=== PATIENT | female | born 1995 | race Caucasian/White ===

== ENCOUNTER 2018-04-07 19:46 | Emergency (ER) | payer OTHER ==
--- NOTE | 2018-04-07 20:17 | ERPHSYRPT ---
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 Triage Nursing Assessment: pt a&o x3; skin p, w, & d; ambulated to room per self ; family at bedside. Physician History: 23-year-old white female 1 para to who states she is 13 weeks last menstrual period January 08 estimated date of confinement December 18, 2018 Who has had an ultrasound done on April 01, 2018 which showed an intrauterine 11 weeks 3 days Arrives with complaint of a noticing some pink tinging from her vagina with wiping after using the restroom just prior to arrival. Past medical history includes asthma, recent mononucleosis Past surgical history negative Timing/Duration: today Severity: mild Modifying Factors: Improves With: nothing Associated Symptoms: other (vaginal blood with wiping after using restroom this afternoon.), No nausea, No vomiting, No abdominal pain, No shortness of breath, No heartburn, No diaphoresis, No cough, No chills, No chest pain, No fever, No headaches, No loss of appetite, No malaise, No rash, No syncope, No seizure, No weakness Allergies/Adverse Reactions: sulfamethoxazole [From Bactrim] Allergy (Mild, Verified 04/07/18 20:02) Headache trimethoprim [From Bactrim] Allergy (Mild, Verified 04/07/18 20:02) Headache codeine Allergy (Verified 04/07/18 20:02) Penicillins Allergy (Verified 04/07/18 20:02) Home Medications: Albuterol 2.5 mg/3 ml Neb [Proventil 2.5 mg/3 ml Neb] DAILY 04/28/14 [ History] Albuterol Sulfate [Proventil Hfa] 04/28/14 [History] Hx Tetanus, Diphtheria Vaccination/Date Given: Yes Hx Influenza Vaccination/Date Given: No Hx Pneumococcal Vaccination/Date Given: No Immunizations Up to Date: No - Review of Systems Constitutional: No Fever, No Chills Eyes: No Symptoms Ears, Nose, & Throat: No Symptoms Respiratory: No Cough, No Dyspnea Cardiac: No Chest Pain, No Edema, No Syncope Abdominal/Gastrointestinal: Abdominal Pain, No Nausea, No Vomiting, No Diarrhea , No Constipation, No Hematemesis, No Hematochezia, No Melena, No Dysphagia Genitourinary Symptoms: (13 weeks), Vaginal Bleeding (blood with wiping after using restroom) Musculoskeletal: No Back Pain, No Neck Pain Skin: No Rash Neurological: No Dizziness, No Focal Weakness, No Sensory Changes Psychological: No Symptoms Endocrine: No Symptoms All Other Systems: Reviewed and Negative - Past Medical History Pertinent Past Medical History: Yes Respiratory History: Asthma Other Medical History: mono 1 month ago - Past Surgical History Past Surgical History: No - Social History Smoking Status: Never smoker Exposure to second hand smoke: No Drug Use: none Patient Lives Alone: No - Female History Hx Last Menstrual Period: 01/08/2018 Hx Now: Yes - Nursing Vital Signs Nursing Vital Signs: Initial Vital Signs Temperature 98.5 F 04/07/18 19:54 Pulse Rate 107 H 04/07/18 19:54 Respiratory Rate 16 04/07/18 19:54 Blood Pressure 132/68 04/07/18 19:54 O2 Sat by Pulse Oximetry 100 04/07/18 19:54 Pain Scale Pain Intensity 0 - Physical Exam General Appearance: no apparent distress, alert Eye Exam: PERRL/EOMI, eyes nml inspection Ears, Nose, Throat Exam: normal ENT inspection, TMs normal, pharynx normal, moist mucous membranes Neck Exam: normal inspection, non-tender, supple, full range of motion Respiratory Exam: normal breath sounds, lungs clear, No respiratory distress Cardiovascular Exam: regular rate/rhythm, normal heart sounds, normal peripheral pulses Gastrointestinal/Abdomen Exam: soft, normal bowel sounds, No tenderness, No mass Pelvic Exam: vaginal bleeding, other (pelvic exam: normal external female genitalia, small amount of blood in the vagina, cervix closed, no adnexal or cervical tenderness) Back Exam: normal inspection, normal range of motion, No CVA tenderness, No vertebral tenderness Extremity Exam: normal inspection, normal range of motion, pelvis stable Neurologic Exam: alert, oriented x 3, cooperative, 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, normal mood/affect, nml cerebellar function, nml station & gait, sensation nml, No motor deficits Skin Exam: normal color, warm, dry, No rash SpO2 Interpretation: normal (100%) SpO2: 100 Oxygen Delivery: Room Air - Course Nursing assessment & vital signs reviewed: Yes Ordered Tests: Active Orders 24 hr Category Date Time Status Heart Tones-ED STAT Care 04/07/18 20:12 Active CBC W DIFF Stat Lab 04/07/18 20:15 Completed CMP Stat Lab 04/07/18 20:15 Completed CULTURE,URINE Stat Lab 04/07/18 20:20 Received HCG, Quantitative (Inhouse) Stat Lab 04/07/18 20:15 Completed UA W/ MICROSCOPIC Stat Lab 04/07/18 20:20 Completed Wet Prep Stat Lab 04/07/18 21:47 Completed Lab/Rad Data: Laboratory Result Diagrams 04/07/18 20:15 04/07/18 20:15 Laboratory Results 04/07/18 04/07/18 04/07/18 Range/Units 21:47 21:47 20:20 WBC (4.0-10.5) K/mm3 RBC (4.1-5.4) M/mm3 Hgb (12.0-16.0) gm/dl Hct (35-47) % MCV (78-100) fl MCH (26-32) pg MCHC (32-36) g/dl RDW (11.5-14.0) % Plt Count (150-450) K/mm3 MPV (6-9.5) fl Gran % (36.0-66.0) % Eos # (Auto) (0-0.5) Absolute Lymphs (auto) (1.0-4.6) Absolute Monos (auto) (0.0-1.3) Lymphocytes % (24.0-44.0) % Monocytes % (0.0-12.0) % Eosinophils % (0.00-5.0) % Basophils % (0.0-0.4) % Absolute Granulocytes (1.4-6.9) Basophils # (0-0.4) Sodium (137-145) mmol/L Potassium (3.5-5.1) mmol/L Chloride (98-107) mmol/L Carbon Dioxide (22-30) mmol/L Anion Gap (5-15) MEQ/L BUN (7-17) mg/dL Creatinine (0.52-1.04) mg/dL Estimated GFR ML/MIN Glucose (74-106) mg/dL Calcium (8.4-10.2) mg/dL Total Bilirubin (0.2-1.3) mg/dL AST (14-36) U/L ALT (0-35) U/L Alkaline Phosphatase (38-126) U/L Serum Total Protein (6.3-8.2) g/dL Albumin (3.5-5.0) g/dL Beta HCG, Quant mIU/ml Ur Collection Type VOID Urine Color YELLOW (YELLOW) Urine Appearance CLEAR (CLEAR) Urine pH 6.0 (5-6) Ur Specific [place] 1.010 (1.005-1.025) Urine Protein NEGATIVE (Negative) Urine Ketones NEGATIVE (NEGATIVE) Urine Blood 250 (0-5) River/ul Urine Nitrite NEGATIVE (NEGATIVE) Urine Bilirubin NEGATIVE (NEGATIVE) Urine Urobilinogen NORMAL (0-1) mg/dL Ur Leukocyte Esterase NEGATIVE (NEGATIVE) Urine Microscopic RBC 0-2 (0-2) /HPF Urine Microscopic WBC 2-5 (0-5) /HPF Ur Epithelial Cells MODERATE (FEW) /HPF Urine Bacteria FEW (NEGATIVE) /HPF Urine Culture Reflexed NO (NO) Urine Glucose NEGATIVE (NEGATIVE) mg/dL WBC (Wet Prep) Few RBC (Wet Prep) Rare Epi Cells (Wet Prep) Few Bacteria (Wet Prep) Few Clue Cells (Wet Prep) None Seen Trichomonas (Wet Prep) None Seen Budding Yeast (Wet Prp) None Seen Specimen Received 04/07/182019 ABO Group O Rh Factor POSITIVE Antibody Screen NEGATIVE (NEGATIVE) 04/07/18 04/07/18 Range/Units 20:15 20:15 WBC 13.2 H (4.0-10.5) K/mm3 RBC 4.29 (4.1-5.4) M/mm3 Hgb 13.2 (12.0-16.0) gm/dl Hct 37.7 (35-47) % MCV 87.9 (78-100) fl MCH 30.8 (26-32) pg MCHC 35.0 (32-36) g/dl RDW 13.6 (11.5-14.0) % Plt Count 245 (150-450) K/mm3 MPV 10.4 H (6-9.5) fl Gran % 72.0 H (36.0-66.0) % Eos # (Auto) 0.25 (0-0.5) Absolute Lymphs (auto) 2.15 (1.0-4.6) Absolute Monos (auto) 1.27 (0.0-1.3) Lymphocytes % 16.3 L (24.0-44.0) % Monocytes % 9.6 (0.0-12.0) % Eosinophils % 1.9 (0.00-5.0) % Basophils % 0.2 (0.0-0.4) % Absolute Granulocytes 9.49 H (1.4-6.9) Basophils # 0.02 (0-0.4) Sodium 138 (137-145) mmol/L Potassium 3.7 (3.5-5.1) mmol/L Chloride 103 (98-107) mmol/L Carbon Dioxide 24 (22-30) mmol/L Anion Gap 15.1 H (5-15) MEQ/L BUN 8 (7-17) mg/dL Creatinine 0.57 (0.52-1.04) mg/dL Estimated GFR > 60.0 ML/MIN Glucose 85 (74-106) mg/dL Calcium 9.7 (8.4-10.2) mg/dL Total Bilirubin 0.20 (0.2-1.3) mg/dL AST 20 (14-36) U/L ALT 20 (0-35) U/L Alkaline Phosphatase 82 (38-126) U/L Serum Total Protein 7.7 (6.3-8.2) g/dL Albumin 4.5 (3.5-5.0) g/dL Beta HCG, Quant 03225 mIU/ml Ur Collection Type Urine Color (YELLOW) Urine Appearance (CLEAR) Urine pH (5-6) Ur Specific [place] (1.005-1.025) Urine Protein (Negative) Urine Ketones (NEGATIVE) Urine Blood (0-5) [place]/ul Urine Nitrite (NEGATIVE) Urine Bilirubin (NEGATIVE) Urine Urobilinogen (0-1) mg/dL Ur Leukocyte Esterase (NEGATIVE) Urine Microscopic RBC (0-2) /HPF Urine Microscopic WBC (0-5) /HPF Ur Epithelial Cells (FEW) /HPF Urine Bacteria (NEGATIVE) /HPF Urine Culture Reflexed (NO) Urine Glucose (NEGATIVE) mg/dL WBC (Wet Prep) RBC (Wet Prep) Epi Cells (Wet Prep) Bacteria (Wet Prep) Clue Cells (Wet Prep) Trichomonas (Wet Prep) Budding Yeast (Wet Prp) Specimen Received ABO Group Rh Factor Antibody Screen (NEGATIVE) - Progress Progress: improved Progress Note: 04/07/18 22:13 23-year-old white female 1 para 0 who is 13 weeks estimated gestational age arrives with complaint of blood with wiping from her vagina since this evening. She has no abdominal pain no nausea no vomiting. Patient is stable with her hemoglobin and hematocrit. Patient on physical examination does have some blood in her vagina there is no pooling there is no active bleeding cervix is closed there is no adnexal or uterine tenderness. Patient had a pelvic ultrasound one week ago which showed an intrauterine 11 weeks 4 days at that time. Patient's urine is essentially negative CBC slight elevation in white count normal for hemoglobin and hematocrit are normal. heart tones were 180 as per OB nurse. Type and screen has been obtained Wet prep is essentially normal. GC Chlamydia are pending. I've discussed the patient's case with Dr. Rosa will plan to have patient return home rest nothing in her vagina follow-up with Dr. Rosa in clinic. We will not do RhoGAM at this time patient with very minimal bleeding. I've discussed this with patient and her family she has good with this and understands plan. 04/07/18 22:16 04/07/18 22:54 Patient's blood type is O+ - Departure Time of Disposition: 22:54 Departure Disposition: Home Clinical Impression: Vaginal bleeding Qualifiers: Weeks of gestation: 13 weeks Qualified Code(s): Z3A.13 - 13 weeks gestation of Condition: Fair Critical Care Time: No Referrals: DEBBIE ROSA MD [Primary Care Provider] - Additional Instructions: Return home rest. Plenty of fluids. Nothing in your vagina. Follow-up with Dr. Rosa. Return for acute distress or for severe symptoms.
[2018-04-07 20:22] LABS: BASOPHIL % 0.2 % (0.0-0.4); Basophil (Absolute #) 0.02 (0-0.4); Eosinophil % 1.9 % (0.00-5.0); Eosinophil (Absolute #) 0.25 (0-0.5); Granulocyte Absolute (ANC) 9.49 (1.4-6.9); Hematocrit 37.7 % (35-47); Hemoglobin 13.2 gm/dl (12.0-16.0); Lymphocyte (Absolute #) 2.15 (1.0-4.6); Lymphocytes % 16.3 % (24.0-44.0); Mean Cell Volume 87.9 fl (78-100); Mean Corpuscular Hemoglobin 30.8 pg (26-32); Mean Platelet Volume 10.4 fl (6-9.5); Monocyte (Absolute #) 1.27 (0.0-1.3); Monocytes % 9.6 % (0.0-12.0); Platelet Count 245 K/mm3 (150-450); Red Blood Count 4.29 M/mm3 (4.1-5.4); Red Cell Distribution Width 13.6 % (11.5-14.0); White Blood Count 13.2 K/mm3 (4.0-10.5)
[2018-04-07 20:32] LABS: Appearance CLEAR (CLEAR); Bacteria FEW /HPF (NEGATIVE); Bilirubin NEGATIVE (NEGATIVE); Blood 250 Ery/ul (0-5); Epithelial Cells MODERATE /HPF (FEW); Glucose NEGATIVE (NEGATIVE); Ketones NEGATIVE (NEGATIVE); Leukocyte Esterase NEGATIVE (NEGATIVE); Nitrite NEGATIVE (NEGATIVE); Protein,Urine Dip NEGATIVE (Negative); RBC 0-2 /HPF (0-2); Urobilinogen NORMAL mg/dL (0-1)
[2018-04-07 20:56] LABS: ALBUMIN 4.5 g/dL (3.5-5.0); ALKALINE PHOSPHATASE 82 U/L (38-126); ANION GAP 15.1 MEQ/L (5-15); BLOOD UREA NITROGEN 8 mg/dL (7-17); CHLORIDE 103 mmol/L (98-107); Calcium 9.7 mg/dL (8.4-10.2); Carbon Dioxide 24 mmol/L (22-30); Creatinine 1 0.57 mg/dL (0.52-1.04); Glucose 85 mg/dL (74-106); Potassium 3.7 mmol/L (3.5-5.1); SGOT/AST 20 U/L (14-36); SGPT/ALT 20 U/L (0-35); SODIUM 138 mmol/L (137-145); Total Protein 7.7 g/dL (6.3-8.2)
[2018-04-07 21:21] LABS: HCG, Quantitative (Inhouse) 99838 mIU/ml
[2018-04-07 21:58] LABS: Bacteria Few; Clue Cells None Seen; Red Blood Cells Rare; Trichomonas None Seen; White Blood Cells Few
[2018-04-07 22:35] LABS: ABO TYPING O
[2018-04-07 22:36] LABS: Antibody Screen NEGATIVE (NEGATIVE); RH TYPING POSITIVE
[2018-04-07 23:07] VITALS: BP 113/70; PULSE 87; O2SAT 99
== END 2018-04-07 23:07 | disposition home or self-care (01) ==
LOC: ED 19:46
DX: O46.91 Antepartum hemorrhage, unspecified, first trimester (principal); Z3A.13 13 weeks gestation of pregnancy
CPT/HCPCS: 36415; 80053; 81000; 84702; 85025; 86850; 86900; 86901; 87086; 87210; 87490; 87590; 99284

== ENCOUNTER 2018-09-01 13:34 | Observation (INO) | payer OTHER, MEDICAID ==
[2018-09-01 13:58] VITALS: BP 115/58
[2018-09-01 14:01] VITALS: PULSE 110
[2018-09-01 14:01] LABS: Appearance CLOUDY (CLEAR); Bilirubin NEGATIVE (NEGATIVE); Blood NEGATIVE Ery/ul (0-5); Epithelial Cells MANY /HPF (FEW); Glucose NEGATIVE (NEGATIVE); Ketones NEGATIVE (NEGATIVE); Leukocyte Esterase LARGE (NEGATIVE); Mucus SLIGHT /HPF (NEGATIVE); Nitrite NEGATIVE (NEGATIVE); Protein,Urine Dip NEGATIVE (Negative); RBC 0-2 /HPF (0-2); Specific Gravity 1.017 (1.005-1.025); Urobilinogen 2 mg/dL (0-1); WBC 26-50 /HPF (0-5)
[2018-09-01 14:23] LABS: Amphetamine,Urine NEGATIVE (NEGATIVE); Barbiturate,Urine NEGATIVE (NEGATIVE); Benzodiazepine,Urine NEGATIVE (NEGATIVE); Cocaine,Urine NEGATIVE (NEGATIVE); Methadone,Urine NEGATIVE (NEGATIVE); Opiate,Urine NEGATIVE (NEGATIVE); PCP,Urine NEGATIVE (NEGATIVE); THC,Urine NEGATIVE (NEGATIVE)
--- NOTE | 2018-09-01 15:34 | XRAY ---
Indication: Irregular heart rhythm. 2-dimensional OB ultrasound performed. Comparison: May 20, 2018. Again there is a single viable intrauterine in cephalic presentation. heart rate 140 bpm with slight arrhythmia. Also tiny 3 mm pericardial effusion. anatomy previously documented. Visualized stomach, kidneys, and bladder unremarkable. Posterior placenta without abruption/previa. BPD measures 8.65 cm corresponding to 34 weeks 6 days. HC measures 31.04 cm corresponding to 34 weeks 5 days. AC measures 31.13 cm corresponding to 35 weeks 0 day. FL measures 6.62 cm corresponding to 34 weeks 1 day. VAL is 14.8 cm. Impression: 1. Again single viable intrauterine with mean gestational age 34 weeks 5 days. Normal progression of with fetus now measuring 10 days larger with respect to first exam of April 01, 2018. 2. arrhythmia. Incidental tiny pericardial effusion that may be associated. Recommend further cardiology evaluation .
== END 2018-09-01 15:45 | disposition home or self-care (01) ==
LOC: OB 13:34
PROVIDERS: ADMIT Family Medicine; ATTEND Family Medicine
DX: Z34.03 Encounter for supervision of normal first pregnancy, third trimester (principal)
CPT/HCPCS: 76805; 80307; 81001; 87086; G0378

== ENCOUNTER 2018-09-30 22:06 | Observation (INO) | payer OTHER ==
[2018-09-30 22:49] LABS: Appearance CLOUDY (CLEAR); Bilirubin NEGATIVE (NEGATIVE); Blood NEGATIVE Ery/ul (0-5); Epithelial Cells FEW /HPF (FEW); Glucose NEGATIVE (NEGATIVE); Ketones NEGATIVE (NEGATIVE); Leukocyte Esterase LARGE (NEGATIVE); Mucus SLIGHT /HPF (NEGATIVE); Nitrite NEGATIVE (NEGATIVE); Protein,Urine Dip NEGATIVE (Negative); RBC 0-2 /HPF (0-2); Specific Gravity 1.019 (1.005-1.025); Urobilinogen 2 mg/dL (0-1)
[2018-09-30 23:44] LABS: Amphetamine,Urine NEGATIVE (NEGATIVE); Barbiturate,Urine NEGATIVE (NEGATIVE); Benzodiazepine,Urine NEGATIVE (NEGATIVE); Cocaine,Urine NEGATIVE (NEGATIVE); Methadone,Urine NEGATIVE (NEGATIVE); Opiate,Urine NEGATIVE (NEGATIVE); PCP,Urine NEGATIVE (NEGATIVE); THC,Urine NEGATIVE (NEGATIVE)
[2018-10-01] MEDS ORDERED: TYLENOL EXTRA STRENGTH 500 MG PO PRN (01:33)
[2018-10-01] MEDS ORDERED: Zofran 4 MG/2 ML VIAL IV PRN (01:33)
[2018-10-01] MEDS ORDERED: XYLOCAINE 1% HCL 20 ML MDV IJ PRN (01:33)
[2018-10-01] MEDS ORDERED: PITOCIN 30 UNITS/ LR 500 ML 500 ML IV SCH (02:00)
[2018-10-01] MEDS ORDERED: Lactated Ringers 1,000 ML IV SCH (02:00)
[2018-10-01 03:09] LABS: BASOPHIL % 0.2 % (0.0-0.4); Basophil (Absolute #) 0.03 (0-0.4); Eosinophil % 1.3 % (0.00-5.0); Eosinophil (Absolute #) 0.18 (0-0.5); Granulocyte Absolute (ANC) 10.89 (1.4-6.9); Hematocrit 38.2 % (35-47); Hemoglobin 12.7 gm/dl (12.0-16.0); Lymphocyte (Absolute #) 1.53 (1.0-4.6); Mean Cell Volume 93.2 fl (78-100); Mean Corpuscular Hgb Concent. 33.2 g/dl (32-36); Mean Platelet Volume 11.5 fl (6-9.5); Monocyte (Absolute #) 1.32 (0.0-1.3); Monocytes % 9.5 % (0.0-12.0); Platelet Count 219 K/mm3 (150-450); Red Cell Distribution Width 14.1 % (11.5-14.0)
--- NOTE | 2018-10-01 08:46 | PCM.SSS ---
History of Present Illness - Chief Complaint Chief Complaint: OB check History of Present Illness: is a 23 year old female at 38 weeks arrived c/o contractions, she has some minimal cervical change from 2-3cm but contractions have spaced out and she feels comfortable now, her heart rate monitor is reassuring. she has had no fluid leakage. - Review of Systems Constitutional: No Fever, No Chills Respiratory: No Cough, No Short Of Breath Cardiac: No Chest Pain, No Edema, No Syncope Abdominal/Gastrointestinal: No Abdominal Pain, No Nausea, No Vomiting, No Diarrhea Genitourinary Symptoms: No Dysuria Medications & Allergies Home Medications: Home Medication List Vits W-Ca,Fe,FA(<1Mg) [] 1 tab PO DAILY 09/01/18 [History Confirmed 09/30/18] Albuterol Sulfate [Albuterol Sulfate Hfa] 8.5 gm IH Q4H PRN PRN 09/30/18 [ History Confirmed 09/30/18] Fluticasone/Vilanterol [Breo Ellipta 100-25 Mcg INH] 1 mcg IH DAILY 09/30/18 [ History Confirmed 09/30/18] Allergies/Adverse Reactions: Allergies Allergy/AdvReac Type Severity Reaction Status Date / Time sulfamethoxazole Allergy Mild Headache Verified 09/30/18 22:47 [From Bactrim] trimethoprim [From Bactrim] Allergy Mild Headache Verified 09/30/18 22:47 codeine Allergy Verified 09/30/18 22:47 Penicillins Allergy Verified 09/30/18 22:47 - Past Medical History Past Medical History: Yes Neurological History: Seizures ENT History: No Pertinent History Cardiac History: No Pertinent History Respiratory History: Asthma Endocrine Medical History: No Pertinent History Musculoskelatal History: No Pertinent History GI Medical History: No Pertinent History History: No Pertinent History Pyscho-Social History: No Pertinent History Reproductive Disorders: No Pertinent History Comment: mono 1 month ago, febrile seizures 7 years old - Female History Expected Date of Delivery: 10/15/18 - Past Surgical History Past Surgical History: No Neuro Surgical History: No Pertinent History Cardiac History: No Pertinent History Respiratory Surgery: No Pertinent History GI Surgical History: No Pertinent History Genitourinary Surgical Hx: No Pertinent History Musculskeletal Surgical Hx: No Pertinent History Female Surgical History: No Pertinent History - Social History Smoking Status: Never smoker Exposure to second hand smoke: No Alcohol: None Drug Use: none - Physical Exam Vital Signs: Vital Signs - 24 hr Temp Pulse Resp BP BP 10/01/18 05:00 98.5 F 102 H 20 131/66 10/01/18 03:00 98.6 F 96 H 20 124/57 10/01/18 02:00 94 H 18 120/70 10/01/18 00:30 95 H 124/60 10/01/18 00:15 106 H 141/69 09/30/18 23:30 95 H 123/64 09/30/18 23:00 98.6 F 105 H 20 126/60 09/30/18 22:06 98.6 F 90 20 127/62 General Appearance: no apparent distress, alert, obese Neurologic Exam: alert, oriented x 3 Respiratory Exam: normal breath sounds, lungs clear, No respiratory distress Cardiovascular Exam: regular rate/rhythm, normal heart sounds, normal peripheral pulses Gastrointestinal/Abdomen Exam: soft, normal bowel sounds, other (gravid), No tenderness, No mass Extremity Exam: pedal edema Results - Labs Lab/Micro Results: Lab Results-Last 24 Hours 09/30/18 09/30/18 10/01/18 Range/Units 22:14 23:26 03:00 WBC 14.0 H (4.0-10.5) K/mm3 RBC 4.10 (4.1-5.4) M/mm3 Hgb 12.7 (12.0-16.0) gm/dl Hct 38.2 (35-47) % MCV 93.2 (78-100) fl MCH 31.0 (26-32) pg MCHC 33.2 (32-36) g/dl RDW 14.1 H (11.5-14.0) % Plt Count 219 (150-450) K/mm3 MPV 11.5 H (6-9.5) fl Gran % 78.0 H (36.0-66.0) % Eos # (Auto) 0.18 (0-0.5) Absolute Lymphs (auto) 1.53 (1.0-4.6) Absolute Monos (auto) 1.32 H (0.0-1.3) Lymphocytes % 11.0 L (24.0-44.0) % Monocytes % 9.5 (0.0-12.0) % Eosinophils % 1.3 (0.00-5.0) % Basophils % 0.2 (0.0-0.4) % Absolute Granulocytes 10.89 H (1.4-6.9) Basophils # 0.03 (0-0.4) Urine Color YELLOW (YELLOW) Urine Appearance CLOUDY (CLEAR) Urine pH 7.0 (5-6) Ur Specific [place] 1.019 (1.005-1.025) Urine Protein NEGATIVE (Negative) Urine Ketones NEGATIVE (NEGATIVE) Urine Blood NEGATIVE (0-5) River/ul Urine Nitrite NEGATIVE (NEGATIVE) Urine Bilirubin NEGATIVE (NEGATIVE) Urine Urobilinogen 2 (0-1) mg/dL Ur Leukocyte Esterase LARGE (NEGATIVE) Urine WBC (Auto) 16-25 (0-5) /HPF Urine RBC (Auto) 0-2 (0-2) /HPF U Epithel Cells (Auto) FEW (FEW) /HPF Urine Bacteria (Auto) NONE (NEGATIVE) /HPF Unidentified Crystals 50-99 (NEGATIVE) /HPF Urine Mucus (Auto) SLIGHT (NEGATIVE) /HPF Urine Culture Reflexed NO (NO) Urine Glucose NEGATIVE (NEGATIVE) mg/dL Urine Opiates Level NEGATIVE (NEGATIVE) Ur Methadone NEGATIVE (NEGATIVE) Urine Barbiturates NEGATIVE (NEGATIVE) Ur Phencyclidine (PCP) NEGATIVE (NEGATIVE) Urine Amphetamine NEGATIVE (NEGATIVE) U Benzodiazepine Level NEGATIVE (NEGATIVE) Urine Cocaine NEGATIVE (NEGATIVE) Urine Marijuana (THC) NEGATIVE (NEGATIVE) Assessment/Plan (1) Term Current Visit: Yes Status: Acute Assessment & Plan: labor ruled out at this time. patient is normotensive Code(s): Z34.80 - ENCOUNTER FOR SUPRVSN OF NORMAL , UNSP TRIMESTER (2) Irregular contractions Current Visit: Yes Status: Acute Code(s): O62.2 - OTHER UTERINE INERTIA Hospital Summary - Vitals & Intake/Output Vital Signs: Vital Signs Temperature 98.5 F 10/01/18 05:00 Pulse Rate 102 H 10/01/18 05:00 Respiratory Rate 20 10/01/18 05:00 Blood Pressure 131/66 10/01/18 05:00 O2 Sat by Pulse Oximetry Intake & Output: Intake & Output 09/28/18 09/29/18 09/30/18 10/01/18 11:59 11:59 11:59 11:59 Weight 124.738 kg - Lab Result Diagrams: 10/01/18 03:00 Lab Results-Last 24 Hrs: Lab Results-Last 24 Hours 09/30/18 09/30/18 10/01/18 Range/Units 22:14 23:26 03:00 WBC 14.0 H (4.0-10.5) K/mm3 RBC 4.10 (4.1-5.4) M/mm3 Hgb 12.7 (12.0-16.0) gm/dl Hct 38.2 (35-47) % MCV 93.2 (78-100) fl MCH 31.0 (26-32) pg MCHC 33.2 (32-36) g/dl RDW 14.1 H (11.5-14.0) % Plt Count 219 (150-450) K/mm3 MPV 11.5 H (6-9.5) fl Gran % 78.0 H (36.0-66.0) % Eos # (Auto) 0.18 (0-0.5) Absolute Lymphs (auto) 1.53 (1.0-4.6) Absolute Monos (auto) 1.32 H (0.0-1.3) Lymphocytes % 11.0 L (24.0-44.0) % Monocytes % 9.5 (0.0-12.0) % Eosinophils % 1.3 (0.00-5.0) % Basophils % 0.2 (0.0-0.4) % Absolute Granulocytes 10.89 H (1.4-6.9) Basophils # 0.03 (0-0.4) Urine Color YELLOW (YELLOW) Urine Appearance CLOUDY (CLEAR) Urine pH 7.0 (5-6) Ur Specific [place] 1.019 (1.005-1.025) Urine Protein NEGATIVE (Negative) Urine Ketones NEGATIVE (NEGATIVE) Urine Blood NEGATIVE (0-5) River/ul Urine Nitrite NEGATIVE (NEGATIVE) Urine Bilirubin NEGATIVE (NEGATIVE) Urine Urobilinogen 2 (0-1) mg/dL Ur Leukocyte Esterase LARGE (NEGATIVE) Urine WBC (Auto) 16-25 (0-5) /HPF Urine RBC (Auto) 0-2 (0-2) /HPF U Epithel Cells (Auto) FEW (FEW) /HPF Urine Bacteria (Auto) NONE (NEGATIVE) /HPF Unidentified Crystals 50-99 (NEGATIVE) /HPF Urine Mucus (Auto) SLIGHT (NEGATIVE) /HPF Urine Culture Reflexed NO (NO) Urine Glucose NEGATIVE (NEGATIVE) mg/dL Urine Opiates Level NEGATIVE (NEGATIVE) Ur Methadone NEGATIVE (NEGATIVE) Urine Barbiturates NEGATIVE (NEGATIVE) Ur Phencyclidine (PCP) NEGATIVE (NEGATIVE) Urine Amphetamine NEGATIVE (NEGATIVE) U Benzodiazepine Level NEGATIVE (NEGATIVE) Urine Cocaine NEGATIVE (NEGATIVE) Urine Marijuana (THC) NEGATIVE (NEGATIVE) - Discharge Disposition: Home, Self-Care Condition: Stable Prescriptions: No Action Vits W-Ca,Fe,FA(<1Mg) [] 1 tab PO DAILY Fluticasone/Vilanterol [Breo Ellipta 100-25 Mcg INH] 1 mcg IH DAILY Albuterol Sulfate [Albuterol Sulfate Hfa] 8.5 gm IH Q4H PRN PRN PRN Reason: breathing Follow up with: DEBBIE ROSA MD [Primary Care Provider] - 1 Week
[2018-10-01 09:38] VITALS: BP 131/70; PULSE 107
== END 2018-10-01 09:15 | disposition home or self-care (01) ==
LOC: UNDOADMOB 22:06 → OB 22:06
PROVIDERS: ADMIT Family Medicine; ATTEND Family Medicine
DX: Z34.03 Encounter for supervision of normal first pregnancy, third trimester (principal)
CPT/HCPCS: 36415; 80307; 81001; 85025; G0378; A9270-GY

== ENCOUNTER 2018-10-10 18:12 | Inpatient (IN) | payer OTHER ==
[2018-10-10] MEDS ORDERED: XYLOCAINE 1% HCL 20 ML MDV IJ PRN (19:38)
[2018-10-10] MEDS ORDERED: Lactated Ringers 1,000 ML IV ONE (19:59)
[2018-10-10] MEDS ORDERED: Ephedrine Sulfate 50 MG/ML IV PRN (19:59)
[2018-10-10] MEDS ORDERED: OB EPIDURAL NAROPIN/SUFENTANIL IN NACL EPIDURAL PRN (19:59)
[2018-10-10 20:00] LABS: BASOPHIL % 0.2 % (0.0-0.4); Basophil (Absolute #) 0.02 (0-0.4); Eosinophil % 0.9 % (0.00-5.0); Eosinophil (Absolute #) 0.11 (0-0.5); Granulocyte Absolute (ANC) 9.85 (1.4-6.9); Granulocytes % 77.5 % (36.0-66.0); Hematocrit 38.7 % (35-47); Lymphocyte (Absolute #) 1.37 (1.0-4.6); Lymphocytes % 10.8 % (24.0-44.0); Mean Cell Volume 92.8 fl (78-100); Mean Corpuscular Hemoglobin 31.2 pg (26-32); Mean Corpuscular Hgb Concent. 33.6 g/dl (32-36); Mean Platelet Volume 11.8 fl (6-9.5); Monocyte (Absolute #) 1.35 (0.0-1.3); Monocytes % 10.6 % (0.0-12.0); Platelet Count 212 K/mm3 (150-450); Red Blood Count 4.17 M/mm3 (4.1-5.4); Red Cell Distribution Width 13.7 % (11.5-14.0); White Blood Count 12.7 K/mm3 (4.0-10.5)
[2018-10-10] MEDS ORDERED: PITOCIN 30 UNITS/ LR 500 ML 500 ML IV SCH (20:00)
[2018-10-10] MEDS: Lactated Ringers 1,000 ML IV SCH (20:13)
[2018-10-10 20:19] LABS: Amphetamine,Urine NEGATIVE (NEGATIVE); Barbiturate,Urine NEGATIVE (NEGATIVE); Benzodiazepine,Urine NEGATIVE (NEGATIVE); Cocaine,Urine NEGATIVE (NEGATIVE); Methadone,Urine NEGATIVE (NEGATIVE); Opiate,Urine NEGATIVE (NEGATIVE); PCP,Urine NEGATIVE (NEGATIVE); THC,Urine NEGATIVE (NEGATIVE)
[2018-10-10] MEDS ORDERED: TYLENOL 325 MG PO PRN (22:10)
[2018-10-11] MEDS: Lactated Ringers 1,000 ML IV SCH (02:41)
[2018-10-11] MEDS ORDERED: Zofran 4 MG/2 ML VIAL IV PRN (05:21)
[2018-10-11] MEDS ORDERED: LANSINOH 40 GM TOP PRN (06:20)
[2018-10-11] MEDS ORDERED: Anucort-HC SUPPOSITORY PR PRN (06:20)
[2018-10-11] MEDS ORDERED: NORCO 5/325 MG PO PRN (06:20)
[2018-10-11] MEDS ORDERED: Mylicon 80MG PO PRN (06:20)
[2018-10-11] MEDS ORDERED: TYLENOL EXTRA STRENGTH 500 MG PO PRN (06:20)
[2018-10-11] MEDS ORDERED: CORTISONE 1% CREAM TP PRN (06:20)
[2018-10-11] MEDS ORDERED: Dulcolax 10 MG SUPP PR PRN (06:20)
[2018-10-11] MEDS: TUCKS TP PRN (08:35)
[2018-10-11] MEDS: Dermoplast Spray TP PRN (08:36)
[2018-10-11] MEDS: FERREX 150 PO SCH (08:37)
[2018-10-11] MEDS: Colace 100 MG PO SCH ×2 (08:37→22:21)
[2018-10-11] MEDS ORDERED: Adacel Vial IM ONE (10:00)
[2018-10-11] MEDS: MOTRIN 400 MG PO PRN ×2 (14:50→22:21)
[2018-10-12 05:53] LABS: BASOPHIL % 0.2 % (0.0-0.4); Basophil (Absolute #) 0.02 (0-0.4); Eosinophil % 1.7 % (0.00-5.0); Eosinophil (Absolute #) 0.19 (0-0.5); Granulocyte Absolute (ANC) 8.34 (1.4-6.9); Granulocytes % 72.4 % (36.0-66.0); Hematocrit 28.4 % (35-47); Hemoglobin 9.3 gm/dl (12.0-16.0); Lymphocyte (Absolute #) 1.69 (1.0-4.6); Lymphocytes % 14.7 % (24.0-44.0); Mean Cell Volume 95.9 fl (78-100); Mean Corpuscular Hemoglobin 31.4 pg (26-32); Mean Corpuscular Hgb Concent. 32.7 g/dl (32-36); Mean Platelet Volume 11.5 fl (6-9.5); Monocyte (Absolute #) 1.26 (0.0-1.3); Platelet Count 154 K/mm3 (150-450); Red Blood Count 2.96 M/mm3 (4.1-5.4); Red Cell Distribution Width 13.6 % (11.5-14.0); White Blood Count 11.5 K/mm3 (4.0-10.5)
[2018-10-12] MEDS ORDERED: Ventolin Hfa MDI IH PRN (07:16)
[2018-10-12] MEDS ORDERED: PROVENTIL COMMON CANISTER IH PRN (07:19)
[2018-10-12] MEDS ORDERED: MEDICATION INTERVENTION MC SCH (07:30)
[2018-10-12] MEDS: FERREX 150 PO SCH (09:32)
[2018-10-12] MEDS: Colace 100 MG PO SCH ×2 (09:32→21:18)
[2018-10-12] MEDS: TUCKS TP PRN (09:33)
[2018-10-12] MEDS: Dermoplast Spray TP PRN (09:33)
[2018-10-12] MEDS: MOTRIN 400 MG PO PRN ×2 (09:36→16:39)
[2018-10-12] MEDS ORDERED: VILANTEROL IH SCH (10:00)
[2018-10-12] MEDS ORDERED: FLUTICASONE IH SCH (10:00)
[2018-10-12] MEDS ORDERED: NON-FORMULARY ITEM (Prenatal Vits W-Ca,Fe,Fa(<1mg) [Prenatal] 1 TAB) PO SCH (10:00)
[2018-10-12] MEDS ORDERED: THERAGRAN MULTIVITAMIN PO SCH (10:00)
[2018-10-13 07:54] VITALS: O2SAT 98
[2018-10-13] MEDS: Colace 100 MG PO SCH (08:41)
[2018-10-13] MEDS: FERREX 150 PO SCH (08:41)
--- NOTE | 2018-10-13 09:19 | PCM.DS ---
Discharge Summary Date of Admission: 10/10/18 18:12 Admitting Physician: DEBBIE ROSA Consults: Consults on Case 10/10/18 19:59 Notify Anesthesia Provider PRN Primary Care Provider: DEBBIE ROSA Allergies Allergies sulfamethoxazole [From Bactrim] Allergy (Mild, Verified 10/10/18 18:44) Headache trimethoprim [From Bactrim] Allergy (Mild, Verified 10/10/18 18:44) Headache codeine Allergy (Verified 10/10/18 18:44) Penicillins Allergy (Verified 10/10/18 18:44) Hospital Summary - Hospital Course Hospital Course: patient arrived in spontaneous labor at 39 wks, had uncomplicated vaginal delivery with second degree perineal laceration repair. , mild lochia and pain well controlled with tylenol and ibuprofen. - Vitals & Intake/Output Vital Signs: Vital Signs Temperature 98.4 F 10/13/18 02:00 Pulse Rate 98 H 10/13/18 02:00 Respiratory Rate 18 10/13/18 02:00 Blood Pressure 138/75 10/13/18 02:00 O2 Sat by Pulse Oximetry 98 10/13/18 07:51 Intake & Output: Intake & Output 10/10/18 10/11/18 10/12/18 10/13/18 11:59 11:59 11:59 11:59 Intake Total 800 Output Total 401 Balance -401 800 Weight 126.099 kg - Lab Result Diagrams: 10/12/18 05:18 - Procedures and Test Procedures and Tests throughout Hospitalization: Therapy Orders & Screens 10/13/18 07:00 Respiratory Therapy Assessment DAILY Comment: Diagnosis: Labor Patient - SR[facility] Discharge Exam General Appearance: no apparent distress, alert, obese Neurologic Exam: alert, oriented x 3 Skin Exam: normal color, warm, dry Respiratory Exam: normal breath sounds, lungs clear, No respiratory distress Cardiovascular Exam: regular rate/rhythm, normal heart sounds Gastrointestinal/Abdomen Exam: soft, No tenderness, No mass Extremity Exam: normal inspection, normal range of motion Final Diagnosis/Problem List - Final Discharge Diagnosis/Problem (1) Vaginal delivery Current Visit: Yes Status: Acute Code(s): O80 - ENCOUNTER FOR FULL-TERM UNCOMPLICATED DELIVERY (2) Second degree perineal laceration during delivery Current Visit: Yes Status: Acute Code(s): O70.1 - SECOND DEGREE PERINEAL LACERATION DURING DELIVERY - Discharge Disposition: Home, Self-Care Condition: Stable Prescriptions: Continue Vits W-Ca,Fe,FA(<1Mg) [] 1 tab PO DAILY Fluticasone/Vilanterol [Breo Ellipta 100-25 Mcg INH] 1 mcg IH DAILY Albuterol Sulfate [Albuterol Sulfate Hfa] 8.5 gm IH Q4H PRN PRN PRN Reason: breathing Follow up with: DEBBIE ROSA MD [Primary Care Provider] - 1 Week
[2018-10-13 12:16] VITALS: BP 126/72; PULSE 74
== END 2018-10-13 12:00 | disposition home or self-care (01) | DRG 807 ==
LOC: OBSVTOIN 18:12 → OB 18:12 → ICU 10-12 09:22
PROVIDERS: ADMIT Family Medicine; ATTEND Family Medicine
PROC: 10E0XZZ Delivery of Products of Conception, External Approach (ICD-10-PCS; principal; 2018-10-11)
PROC: 0KQM0ZZ Repair Perineum Muscle, Open Approach (ICD-10-PCS; 2018-10-11)
DX: O70.1 Second degree perineal laceration during delivery (principal); Z37.0 Single live birth; Z3A.39 39 weeks gestation of pregnancy
CPT/HCPCS: 36415; 80307; 83986; 85025; 90715; 94760; G0378; J2405; J2590; J2795; A9270-GY

== ENCOUNTER 2021-05-25 04:50 | Emergency (ER) | payer OTHER ==
[2021-05-25] MEDS ORDERED: Zofran 4 MG/2 ML VIAL IV ONE (05:18)
[2021-05-25] MEDS ORDERED: TORAdol 30 mg Injection IV ONE (05:18)
[2021-05-25] MEDS ORDERED: Sodium Chloride 0.9% 1000 ML 1,000 ML IV STA ×2 (05:18→05:31)
[2021-05-25] MEDS ORDERED: Zofran 4 MG/2 ML VIAL ONE (05:23)
[2021-05-25] MEDS ORDERED: Sodium Chloride 0.9% 1000 ML 1,000 ML ONE (05:23)
[2021-05-25] MEDS ORDERED: TORAdol 30 mg Injection ONE (05:23)
--- NOTE | 2021-05-25 05:51 | ERPHSYRPT ---
- History of Present Illness Time Seen by Provider: 05/25/21 05:15 Historian: patient Exam Limitations: no limitations Patient Subjective Stated Complaint: Its my gallbladder, I know it is, I'm having surgery on 06/10/21 to have it out. Triage Nursing Assessment: pt c/o RUQ pain, states, "It's my gallbladder". Pt scheduled to have gallbladder out on 06/10/[address] Webster. Abd soft, tender to RUQ, bs active x4 quad. LBM 05/24/21. Physician History: This is a 26-year-old white female who has been having intermittent gallbladder issues over the last year. However in the last month its been more frequent. Last night she had eaten a salad and this morning approximately 3 AM began having the right upper quad abdominal pain with radiation into her back. She had nausea but no vomiting. She has no chest pain. She has no diarrhea. Patient has a cholecystectomy scheduled by Dr. Webster on June 10, 2021. Timing/Duration: hour(s) (2), intermittent, worse Quality: sharpness, stabbing Abdominal Pain Onset Location: RUQ Pain Radiation: back (Right) Severity of Pain-Max: moderate Severity of Pain-Current: mild (Mild to moderate) Associated Symptoms: denies symptoms, nausea Previous symptoms: same symptoms as today Allergies/Adverse Reactions: Penicillins Allergy (Mild, Verified 05/25/21 05:06) Rash sulfamethoxazole [From Bactrim] Allergy (Mild, Verified 05/25/21 05:06) Headache trimethoprim [From Bactrim] Allergy (Mild, Verified 05/25/21 05:06) Headache codeine Allergy (Verified 05/25/21 05:06) Home Medications: Albuterol Sulfate [Albuterol Sulfate Hfa] 8.5 gm IH Q4H PRN PRN 09/30/18 [History] Fluticasone/Vilanterol [Breo Ellipta 100-25 Mcg INH] 1 mcg IH DAILY 09/30/18 [History] Norgestimate-Ethinyl Estradiol [Tri-Sprintec] 1 tab PO DAILY 05/25/21 [History] Hx Tetanus, Diphtheria Vaccination/Date Given: Yes Hx Influenza Vaccination/Date Given: No Hx Pneumococcal Vaccination/Date Given: No Immunizations Up to Date: Yes Travel Risk - International Travel Have you traveled outside of the country in past 3 weeks: No - Coronavirus Screening Close contact with a COVID-19 positive Pt in past 14-21 Days: No - Vaccine Status Have you recieved a Covid-19 vaccination: No - Review of Systems Constitutional: No Symptoms Eyes: No Symptoms Ears, Nose, & Throat: No Symptoms Respiratory: No Symptoms Cardiac: No Symptoms Abdominal/Gastrointestinal: Abdominal Pain, Nausea, Appetite Changes, No Vomiting, No Diarrhea Genitourinary Symptoms: No Symptoms Musculoskeletal: No Symptoms Skin: No Symptoms Neurological: No Symptoms Psychological: No Symptoms Endocrine: No Symptoms Hematologic/Lymphatic: No Symptoms, Easy Bruising All Other Systems: Reviewed and Negative - Past Medical History Pertinent Past Medical History: Yes Neurological History: Seizures ENT History: No Pertinent History Cardiac History: No Pertinent History Respiratory History: Asthma Endocrine Medical History: No Pertinent History Musculoskeletal History: No Pertinent History GI Medical History: Gallbladder Disease History: No Pertinent History Psycho-Social History: No Pertinent History Female Reproductive Disorders: No Pertinent History Other Medical History: mono, febrile seizures 7 years old - Past Surgical History Past Surgical History: No Neuro Surgical History: No Pertinent History Cardiac: No Pertinent History Respiratory: No Pertinent History Gastrointestinal: No Pertinent History Genitourinary: No Pertinent History Musculoskeletal: No Pertinent History Female Surgical History: No Pertinent History - Social History Smoking Status: Never smoker Exposure to second hand smoke: No Drug Use: none Patient Lives Alone: Yes - Female History Hx Last Menstrual Period: 04/24/21 Hx Now: No - Nursing Vital Signs Nursing Vital Signs: Initial Vital Signs Temperature 96.6 F 05/25/21 04:58 Pulse Rate 87 05/25/21 04:58 Respiratory Rate 18 05/25/21 04:58 Blood Pressure 127/70 05/25/21 04:58 O2 Sat by Pulse Oximetry 98 05/25/21 04:58 Pain Scale Pain Intensity 10 - Physical Exam General Appearance: no apparent distress, alert Eye Exam: PERRL/EOMI Ears, Nose, Throat Exam: normal ENT inspection, moist mucous membranes Neck Exam: normal inspection, non-tender, supple, full range of motion Respiratory Exam: normal breath sounds, lungs clear, airway intact, No chest tenderness, No respiratory distress Cardiovascular Exam: regular rate/rhythm, normal heart sounds, normal peripheral pulses Gastrointestinal/Abdomen Exam: soft, normal bowel sounds, No tenderness Pelvic Exam: not done Rectal Exam: not done Back Exam: normal inspection, normal range of motion, No CVA tenderness, No vertebral tenderness Extremity Exam: normal inspection, normal range of motion, pelvis stable Neurologic Exam: alert, oriented x 3, cooperative, director vaccine II-XII nml as tested, normal mood/affect, nml cerebellar function, nml station & gait, sensation nml Skin Exam: normal color, warm, dry Lymphatic Exam: No adenopathy SpO2 Interpretation: normal SpO2: 98 O2 Delivery: Room Air - Course Nursing assessment & vital signs reviewed: Yes Ordered Tests: Active Orders 24 hr Category Date Time Status IV Insertion STAT Care 05/25/21 05:19 Active AMYLASE Stat Lab 05/25/21 05:10 Completed CBC W DIFF Stat Lab 05/25/21 05:10 Completed CMP Stat Lab 05/25/21 05:10 Completed LIPASE Stat Lab 05/25/21 05:10 Completed UA W/RFX UR CULTURE Stat Lab 05/25/21 05:18 Completed Medication Summary Discontinued Medications Generic Name Dose Route Start Last Admin Trade Name Ehq PRN Reason Stop Dose Admin Ciprofloxacin 500 mg 05/25/21 06:21 Ciprofloxacin 500 Mg Tablet PO 05/25/21 06:22 STAT ONE Hydromorphone HCl 0.5 mg 05/25/21 06:18 Hydromorphone 1 Mg/1ml Inj 1 Mg/Ml Syringe IV 05/25/21 06:19 STAT ONE Sodium Chloride 1,000 mls @ 999 mls/hr 05/25/21 05:18 05/25/21 05:25 Sodium Chloride 0.9% 1000 Ml IV 05/25/21 06:18 999 mls/hr .Q1H1M STA Administration Sodium Chloride Confirm 05/25/21 05:23 Sodium Chloride 0.9% 1000 Ml Administered 05/25/21 05:24 Dose 1,000 mls @ ud .ROUTE .STK-MED ONE Sodium Chloride 1,000 mls @ 250 mls/hr 05/25/21 05:31 05/25/21 05:45 Sodium Chloride 0.9% 1000 Ml IV 05/25/21 09:30 Not Given .Q4H STA Ketorolac Tromethamine 30 mg 05/25/21 05:18 05/25/21 05:27 Ketorolac Tromethamine 30 Mg/Ml Inj IV 05/25/21 05:19 30 mg STAT ONE Administration Ketorolac Tromethamine Confirm 05/25/21 05:23 Ketorolac Tromethamine 30 Mg/Ml Inj Administered 05/25/21 05:24 Dose 30 mg .ROUTE .STK-MED ONE Ondansetron HCl 4 mg 05/25/21 05:18 05/25/21 05:28 Ondansetron Hcl 4 Mg/2 Ml Vial IV 05/25/21 05:19 4 mg STAT ONE Administration Ondansetron HCl Confirm 05/25/21 05:23 Ondansetron Hcl 4 Mg/2 Ml Vial Administered 05/25/21 05:24 Dose 4 mg .ROUTE .STK-MED ONE Lab/Rad Data: Laboratory Result Diagrams 05/25/21 05:10 05/25/21 05:10 Laboratory Results 05/25/21 05/25/21 05/25/21 Range/Units 05:18 05:10 05:10 WBC 7.1 (4.0-10.5) K/mm3 RBC 4.47 (4.1-5.4) M/mm3 Hgb 12.8 (12.0-16.0) gm/dl Hct 40.0 (35-47) % MCV 89.5 (78-100) fl MCH 28.6 (26-32) pg MCHC 32.0 (32-36) g/dl RDW 13.8 (11.5-14.0) % Plt Count 215 (150-450) K/mm3 MPV 11.2 H (7.5-11.0) fl Gran % 50.7 (36.0-66.0) % Eos # (Auto) 0.40 (0-0.5) Absolute Lymphs (auto) 2.16 (1.0-4.6) Absolute Monos (auto) 0.91 (0.0-1.3) Lymphocytes % 30.5 (24.0-44.0) % Monocytes % 12.9 H (0.0-12.0) % Eosinophils % 5.6 H (0.00-5.0) % Basophils % 0.3 (0.0-0.4) % Absolute Granulocytes 3.59 (1.4-6.9) Basophils # 0.02 (0-0.4) Sodium 140 (137-145) mmol/L Potassium 4.1 (3.5-5.1) mmol/L Chloride 105 (98-107) mmol/L Carbon Dioxide 25 (22-30) mmol/L Anion Gap 14.6 (5-15) MEQ/L BUN 11 (7-17) mg/dL Creatinine 0.66 (0.52-1.04) mg/dL Estimated GFR > 60.0 ML/MIN Glucose 89 (74-106) mg/dL Calcium 9.5 (8.4-10.2) mg/dL Total Bilirubin 0.50 (0.2-1.3) mg/dL AST 19 (14-36) U/L ALT 16 (0-35) U/L Alkaline Phosphatase 58 (38-126) U/L Serum Total Protein 7.1 (6.3-8.2) g/dL Albumin 4.1 (3.5-5.0) g/dL Amylase 63 (30-110) U/L Lipase 90 (23-300) U/L Urine Color YELLOW (YELLOW) Urine Appearance SLIGHTLY CLOUDY (CLEAR) Urine pH 5.0 (5-6) Ur Specific [place] 1.016 (1.005-1.025) Urine Protein NEGATIVE (Negative) Urine Ketones NEGATIVE (NEGATIVE) Urine Blood NEGATIVE (0-5) River/ul Urine Nitrite NEGATIVE (NEGATIVE) Urine Bilirubin NEGATIVE (NEGATIVE) Urine Urobilinogen NEGATIVE (0-1) mg/dL Ur Leukocyte Esterase LARGE (NEGATIVE) Urine WBC (Auto) 6-10 (0-5) /HPF Urine RBC (Auto) 0-2 (0-2) /HPF U Epithel Cells (Auto) FEW (FEW) /HPF Urine Bacteria (Auto) NONE (NEGATIVE) /HPF Urine Mucus (Auto) SLIGHT (NEGATIVE) /HPF Urine Culture Reflexed NO (NO) Urine Glucose NEGATIVE (NEGATIVE) mg/dL - Progress Progress: improved, re-examined Counseled pt/family regarding: lab results, diagnosis, need for follow-up, rad results - Departure Departure Disposition: Home Clinical Impression: Right upper quadrant abdominal pain Condition: Stable Critical Care Time: No Referrals: PAL CALDERON NP [Primary Care Provider] - Additional Instructions: Avoid fatty greasy spicy foods. Take your medication as prescribed. Return to emergency department if your symptoms worsen. Prescriptions: Ondansetron ODT 4 MG [Zofran Odt 4 mg] 4 mg PO Q6H PRN PRN #10 tablet PRN Reason: Vomiting Hydrocodone/APAP 5/325 [[place] 5/325 mg] 1 each PO Q8H PRN PRN #6 tablet MDD 3 PRN Reason: Pain Ciprofloxacin [Cipro 500 MG] 500 mg PO BID #14 tablet
[2021-05-25 05:55] LABS: Absolute Neutrophil Ct (ANC) 3.59 (1.4-6.9); BASOPHIL % 0.3 % (0.0-0.4); Basophil (Absolute #) 0.02 (0-0.4); Eosinophil % 5.6 % (0.00-5.0); Hemoglobin 12.8 gm/dl (12.0-16.0); Lymphocyte (Absolute #) 2.16 (1.0-4.6); Lymphocytes % 30.5 % (24.0-44.0); Mean Cell Volume 89.5 fl (78-100); Mean Corpuscular Hemoglobin 28.6 pg (26-32); Mean Platelet Volume 11.2 fl (7.5-11.0); Monocyte (Absolute #) 0.91 (0.0-1.3); Monocytes % 12.9 % (0.0-12.0); Neutrophil % 50.7 % (36.0-66.0); Platelet Count 215 K/mm3 (150-450); Red Blood Count 4.47 M/mm3 (4.1-5.4); Red Cell Distribution Width 13.8 % (11.5-14.0); White Blood Count 7.1 K/mm3 (4.0-10.5)
[2021-05-25 06:02] LABS: Appearance SLIGHTLY CLOUDY (CLEAR); Bilirubin NEGATIVE (NEGATIVE); Blood NEGATIVE Ery/ul (0-5); Epithelial Cells FEW /HPF (FEW); Glucose NEGATIVE (NEGATIVE); Ketones NEGATIVE (NEGATIVE); Leukocyte Esterase LARGE (NEGATIVE); Mucus SLIGHT /HPF (NEGATIVE); Nitrite NEGATIVE (NEGATIVE); Protein,Urine Dip NEGATIVE (Negative); RBC 0-2 /HPF (0-2); Specific Gravity 1.016 (1.005-1.025); Urobilinogen NEGATIVE mg/dL (0-1)
[2021-05-25 06:06] LABS: ALBUMIN 4.1 g/dL (3.5-5.0); ALKALINE PHOSPHATASE 58 U/L (38-126); AMYLASE 63 U/L (30-110); ANION GAP 14.6 MEQ/L (5-15); BLOOD UREA NITROGEN 11 mg/dL (7-17); CHLORIDE 105 mmol/L (98-107); Calcium 9.5 mg/dL (8.4-10.2); Carbon Dioxide 25 mmol/L (22-30); Creatinine 1 0.66 mg/dL (0.52-1.04); EST GLOMERULAR FILTRATION RATE > 60.0 ML/MIN; Glucose 89 mg/dL (74-106); LIPASE 90 U/L (23-300); Potassium 4.1 mmol/L (3.5-5.1); SGOT/AST 19 U/L (14-36); SGPT/ALT 16 U/L (0-35); SODIUM 140 mmol/L (137-145); Total Protein 7.1 g/dL (6.3-8.2)
[2021-05-25] MEDS ORDERED: Hydromorphone 1 mg/ml Injection IV ONE (06:18)
[2021-05-25] MEDS ORDERED: Cipro 500 MG PO ONE (06:21)
[2021-05-25] MEDS ORDERED: Cipro 500 MG ONE (06:45)
[2021-05-25] MEDS ORDERED: Hydromorphone 1 mg/ml Injection ONE (06:46)
[2021-05-25 07:05] VITALS: BP 108/61; PULSE 74; O2SAT 100
== END 2021-05-25 07:00 | disposition home or self-care (01) ==
LOC: ED 04:50
DX: R10.11 Right upper quadrant pain (principal)
CPT/HCPCS: 36000; 36415; 80053; 81001; 82150; 83690; 85025; 96374; 96375; 99284; J1170; J1885; J2405; A9270-GY

== ENCOUNTER 2021-06-10 10:10 | Day surgery (SDC) | payer OTHER ==
--- NOTE | 2021-06-10 09:37 | HP ---
DATE OF SURGERY: 06/10/2021 HISTORY OF PRESENT ILLNESS: The patient is a 26-year-old had some epigastric pain radiating to the back, started after second . Recently some foods go through her quick with some stools and increasing loose stools. PAST MEDICAL HISTORY: Asthma. PAST SURGICAL HISTORY: None. MEDICATIONS: Tri-Sprintec control. Albuterol inhalers. Breo Ellipta. ALLERGIES: PENICILLIN. BACTRIM. CODEINE. FAMILY HISTORY: Heart disease. Father has a pacemaker. SOCIAL HISTORY: No smoking or alcohol abuse. REVIEW OF SYSTEMS: Fourteen systems reviewed. No chest pain or palpitations. Other systems negative or noncontributory as above and per preadmission questionnaire. Ultrasound showed cholelithiasis. PHYSICAL EXAMINATION: GENERAL: No acute distress. HEENT: Sclerae nonicteric. NECK: No JVD. CHEST: Equal excursion, nonlabored breathing. CVS: Regular rate and rhythm. ABDOMEN: Soft, some mild tenderness right upper quadrant. No peritoneal signs. EXTREMITIES: No significant edema. NEURO: Alert, oriented, moving extremities symmetrically. PSYCH: Appropriate mood and affect. IMPRESSION: Acute exacerbation of chronic cholecystitis, symptomatic cholelithiasis. I feel the patient would benefit cholecystectomy shown the risk sheet and explained the procedure in detail including but not limited to bleeding or infection, risk of bowel injury or perforation possibly requiring further procedure, risk of trocar injury or hernia, risk of bile leak, bile duct injury, retained stone or sludge possibly requiring further procedure either open or ERCP, general risk of anesthesia, deep venous thrombosis, pulmonary embolism, pneumonia, perioperative risk of aches, pains, bloating, constipation and/or loose stools possibly even chronic in nature, general risk of anesthesia or sedation. He understands and agrees to the planned procedure, will proceed with laparoscopic cholecystectomy with possible open as an outpatient.
[~2021-06-10 10:10] MED LIST: Lactated Ringers 1,000 ML IV ONE; Sensorcaine 0.25% 10 ML ONE
[2021-06-10] MEDS ORDERED: Levofloxacin 500MG/100ML D5W 500 MG/100 ML BAG IV STA (10:30)
[2021-06-10] MEDS ORDERED: Lactated Ringers 1,000 ML IV SCH (10:30)
[2021-06-10] MEDS ORDERED: CEFAZOLIN 2 GM-D5W BAG** 2 GM/50 ML ML IV SCH (10:30)
[2021-06-10] MEDS ORDERED: CLINDAMYCIN-D5W 900 MG/50 ML*** 900 MG/50 ML BAG IV SCH (10:30)
[2021-06-10] MEDS ORDERED: CLINDAMYCIN-D5W 900 MG/50 ML*** 900 MG/50 ML BAG IV ONE (10:34)
[2021-06-10] MEDS ORDERED: Levofloxacin 500MG/100ML D5W 500 MG/100 ML BAG IV ONE (10:34)
[2021-06-10] MEDS ORDERED: Lactated Ringers 1,000 ML IV ONE (10:34)
[2021-06-10] MEDS ORDERED: SUBLIMAZE 100 MCG/2 ML ONE (12:46)
[2021-06-10] MEDS ORDERED: Xylocaine-Mpf 2% 5 Ml Vial ONE (12:46)
[2021-06-10] MEDS ORDERED: TORAdol 30 mg Injection ONE (12:46)
[2021-06-10] MEDS ORDERED: Decadron 4 MG INJ ONE (12:46)
[2021-06-10] MEDS ORDERED: Zemuron 100 MG/10 ML ONE (12:46)
[2021-06-10] MEDS ORDERED: Zofran 4 MG/2 ML VIAL ONE (12:46)
[2021-06-10] MEDS ORDERED: DIPRIVAN 200 MG/20 ML IV ONE (12:46)
[2021-06-10] MEDS ORDERED: BRIDION 200MG/2ML IV ONE (12:46)
[2021-06-10] MEDS ORDERED: Compazine 10 MG/2 ML ONE (13:41)
[2021-06-10] MEDS ORDERED: MORPHINE SULFATE 2 MG INJ ONE ×2 (13:46→14:03)
[2021-06-10] MEDS ORDERED: NORCO 5/325 MG PO PRN (14:44)
--- NOTE | 2021-06-11 09:14 | OP ---
SURGERY DATE/TIME: 06/10/2021 1245 PREOPERATIVE DIAGNOSIS: Acute exacerbation of chronic cholecystitis, symptomatic cholelithiasis. POSTOPERATIVE DIAGNOSIS: Acute exacerbation of chronic cholecystitis, symptomatic cholelithiasis. PROCEDURE: Laparoscopic cholecystectomy. SURGEON: Dr. Luc Bloom. ANESTHESIA: General. ESTIMATED BLOOD LOSS: Minimal. INDICATIONS: As noted above. Risks and benefits explained in detail but not limited to and consent obtained. DESCRIPTION OF PROCEDURE AND FINDINGS: The patient was taken to the operating room. General anesthesia induced. Abdomen prepped and draped in the usual sterile fashion. After official time out and no disagreement with planned procedure, a transverse incision made at the supraumbilical area. Fascia grasped and pulled upward. Veress needle inserted and tested with saline. Pneumoperitoneum accomplished insufflating opening pressure of 0-15. An 11 mm bladeless port and camera inserted without difficulty followed by two - 5 mm right upper quadrant ports and 5 mm epigastric port. Superficial anatomy of the viscera and liver were grossly unremarkable. The gallbladder had some chronic inflammation. It was dissected posterior, lateral to anterior fashion. Slowly and carefully the cystic duct and infundibular area slowly and carefully well skeletonized until the critical view obtained both anteriorly and posteriorly. Once this is accomplished, the cystic duct and cystic artery clipped x3 and divided in usual fashion. There were a couple little side branches that were oozing that were clipped directly on the gallbladder wall. The gallbladder carefully dissected from the liver bed. Just prior to releasing from final attachments to the anterior edge of the liver, the liver bed re-inspected. Clips noted to be in place in cystic duct and cystic artery stumps. No signs of any active bleeding or bile leakage. Irrigation is clear. It was felt that there is no benefit in drain placement. Gallbladder released from final attachments to the anterior edge of the liver, placed in the provided sac, pulled up into the supraumbilical port area decompressed of some stones and bile with the bag and gallbladder pulled free and passed off. This fascial defect closed with puncture closure device with #1 Vicryl. One last look at the liver bed. Good hemostasis noted. Clips noted in place cystic duct and cystic artery stumps. No signs of any active bleeding or bile leakage. It was felt there is no benefit from drain placement. Pneumoperitoneum decompressed. The wound irrigated out. Skin incision closed with 4-0 Vicryl. Steri-Strips and sterile dressing applied. 0.25% Marcaine local had been injected along the skin incision fascial defect at the beginning of the procedure. There were no immediate complications. The findings were discussed with the family out in the waiting area.
== END 2021-06-10 15:45 | disposition home or self-care (01) ==
LOC: SDC 10:10
PROVIDERS: ATTEND Surgery
DX: K80.12 Calculus of gallbladder with acute and chronic cholecystitis without obstruction (principal)
CPT/HCPCS: 84703; J1100; J1885; J1956; J2270; J2405; J2704; J3010; A9270-GY

== ENCOUNTER 2021-09-22 02:36 | Emergency (ER) | payer OTHER ==
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
[2021-09-22] MEDS ORDERED: MOTRIN 400 MG PO ONE (03:49)
[2021-09-22] MEDS ORDERED: MOTRIN 400 MG ONE (03:50)
[2021-09-22 03:58] VITALS: BP 112/66; PULSE 97; O2SAT 99
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
== END 2021-09-22 03:58 | disposition home or self-care (01) ==
LOC: ED 02:36
DX: S16.1XXA Strain of muscle, fascia and tendon at neck level, initial encounter (principal); Y04.2XXA Assault by strike against or bumped into by another person, initial encounter; T76.11XA Adult physical abuse, suspected, initial encounter; Z79.899 Other long term (current) drug therapy
CPT/HCPCS: 72040; 99283; A9270-GY

== ENCOUNTER 2022-02-12 23:08 | Emergency (ER) | payer OTHER ==
--- NOTE | 2022-02-12 23:20 | ERPHSYRPT ---
- History of Present Illness Time Seen by Provider: 02/12/22 23:20 Source: patient Exam Limitations: no limitations Physician History: This is a 27-year-old white female who tripped over a toy at 7 PM prior to arrival to the emergency department. She has pain in the right ankle. Patient did not fall and hit her head. She has no pain anywhere else. Patient presented to the emergency department using crutches. Patient has taken hydrocodone in the past without any problems or adverse reactions. Occurred: this evening Quality: constant, aching Severity of Pain-Max: moderate Severity of Pain-Current: moderate Lower Extremities Pain: ankle: right Modifying Factors: Improves With: movement Associated Symptoms: other (Patient can bear weight but hurts to do so) Allergies/Adverse Reactions: Penicillins Allergy (Mild, Verified 02/12/22 23:14) Rash sulfamethoxazole [From Bactrim] Allergy (Mild, Verified 02/12/22 23:14) Headache trimethoprim [From Bactrim] Allergy (Mild, Verified 02/12/22 23:14) Headache codeine Allergy (Verified 02/12/22 23:14) Home Medications: Albuterol Sulfate [Albuterol Sulfate Hfa] 8.5 gm IH Q4H PRN PRN 09/30/18 [History] Fluticasone/Vilanterol [Breo Ellipta 100-25 Mcg INH] 1 mcg IH DAILY 09/30/18 [ History] Sertraline HCl 50 mg [Zoloft 50 mg Tablet] 50 mg PO DAILY 02/12/22 [History] norethindrone ac-eth estradioL [Microgestin 21 1.5-30 Tab] 1 each PO DAILY 02/12/22 [History] Hx Tetanus, Diphtheria Vaccination/Date Given: No Hx Influenza Vaccination/Date Given: Yes Hx Pneumococcal Vaccination/Date Given: No Travel Risk - International Travel Have you traveled outside of the country in past 3 weeks: No - Coronavirus Screening Are you exhibiting any of the following symptoms?: No Close contact with a COVID-19 positive Pt in past 14-21 Days: No - Vaccine Status Have you recieved a Covid-19 vaccination: No - Review of Systems Constitutional: No Symptoms Eyes: No Symptoms Ears, Nose, & Throat: No Symptoms Respiratory: No Symptoms Cardiac: No Symptoms Abdominal/Gastrointestinal: No Symptoms Genitourinary Symptoms: No Symptoms Musculoskeletal: Injury (Right ankle) Skin: No Symptoms Neurological: No Symptoms Psychological: No Symptoms Endocrine: No Symptoms Hematologic/Lymphatic: No Symptoms Immunological/Allergic: No Symptoms All Other Systems: Reviewed and Negative - Past Medical History Pertinent Past Medical History: Yes Neurological History: Seizures ENT History: No Pertinent History Cardiac History: No Pertinent History Respiratory History: Asthma Endocrine Medical History: No Pertinent History Musculoskeletal History: No Pertinent History GI Medical History: Gallbladder Disease History: No Pertinent History Psycho-Social History: No Pertinent History Female Reproductive Disorders: No Pertinent History Other Medical History: mono, febrile seizures 7 years old - Past Surgical History Past Surgical History: Yes Neuro Surgical History: No Pertinent History Cardiac: No Pertinent History Respiratory: No Pertinent History Gastrointestinal: Cholecystectomy Genitourinary: No Pertinent History Musculoskeletal: No Pertinent History Female Surgical History: No Pertinent History - Social History Smoking Status: Never smoker Exposure to second hand smoke: No Drug Use: none Patient Lives Alone: No - Female History Hx Now: No - Nursing Vital Signs Nursing Vital Signs: Initial Vital Signs Pulse Rate 101 H 02/12/22 23:17 Respiratory Rate 16 02/12/22 23:17 Blood Pressure 116/57 02/12/22 23:17 O2 Sat by Pulse Oximetry 100 02/12/22 23:17 Pain Scale Pain Intensity 10 - Physical Exam General Appearance: no apparent distress, alert, anxiety Eyes, Ears, Nose, Throat Exam: normal ENT inspection, moist mucous membranes Neck Exam: normal inspection, non-tender, supple, full range of motion Cardiovascular/Respiratory Exam: chest non-tender, no respiratory distress Gastrointestinal/Abdominal Exam: non-tender Back Exam: normal inspection, normal range of motion, No CVA tenderness, No vertebral tenderness Hips Exam: bilateral: non-tender, normal inspection, normal range of motion, no evidence of injury Legs Exam: bilateral leg: non-tender, normal inspection, normal range of motion, no evidence of injury Knees Exam: bilateral knee: non-tender, normal inspection, normal range of motion, no evidence of injury Ankle Exam: right ankle: bone tenderness, limited range of motion, soft tissue tenderness, left ankle: non-tender, normal inspection, normal range of motion, no evidence of injury Foot Exam: bilateral foot: non-tender, normal inspection, normal range of motion, no evidence of injury Neuro/Tendon Exam: normal sensation, normal motor functions, normal tendon functions, responds to pain, no evidence tendon injury Mental Status Exam: alert, oriented x 3, cooperative Skin Exam: normal color, warm, dry SpO2 Interpretation: normal O2 Delivery: Room Air - Course Nursing assessment & vital signs reviewed: Yes Ordered Tests: Active Orders 24 hr Category Date Time Status ANKLE (3 VIEWS) Stat Exams 02/12/22 Taken Medication Summary Discontinued Medications Generic Name Dose Route Start Last Admin Trade Name Oz PRN Reason Stop Dose Admin Hydrocodone Bitart/Acetaminophen 1 tab 02/13/22 00:00 Hydrocodone/Apap 5/325 Mg Tablet PO 02/13/22 00:01 STAT ONE Hydrocodone Bitart/Acetaminophen 2 tab 02/13/22 00:00 Hydrocodone/Apap 5/325 Mg Tablet PO 02/13/22 00:01 SENT HOME W/ PATIENT ONE Ibuprofen 600 mg 02/13/22 00:00 Ibuprofen 600 Mg Tablet PO 02/13/22 00:01 STAT ONE - Progress Progress: improved, pain not gone completely Progress Note: 02/13/22 00:05 X-ray right ankle shows no acute fracture or dislocation Counseled pt/family regarding: need for follow-up, rad results - Departure Departure Disposition: Home Clinical Impression: Right ankle sprain Condition: Stable Critical Care Time: No Referrals: PAL CALDERON NP [Primary Care Provider] - Follow up/PCP as directed Additional Instructions: Ice pack to area 3 times a day for the next 48 hours. Ibuprofen 600 mg with food 3 times a day for the next 4 days. Follow-up in [facility] orthopedic clinic Thursday through Thursday 8 AM to 10 AM if pain persists in right ankle beyond 48 hours. The radiologist will perform an over read this morning. You will be contacted if there is any difference in the radiographic reading then what you received this evening. Forms: Work/School Release Form
[2022-02-12 23:26] VITALS: BP 116/57; PULSE 101; O2SAT 100
[2022-02-13] MEDS ORDERED: NORCO 5/325 MG PO ONE ×2
[2022-02-13] MEDS ORDERED: MOTRIN 600 MG PO ONE
[2022-02-13] MEDS ORDERED: MOTRIN 600 MG ONE (00:02)
[2022-02-13] MEDS ORDERED: NORCO 5/325 MG ONE (00:03)
--- NOTE | 2022-02-13 08:55 | XRAY ---
Indication: Pain following fall. Comparison: None 3 view right ankle obtained. No bony, articular, or soft tissue abnormalities.
== END 2022-02-13 00:18 | disposition home or self-care (01) ==
LOC: ED 23:08
DX: S93.401A Sprain of unspecified ligament of right ankle, initial encounter (principal); W22.8XXA Striking against or struck by other objects, initial encounter; M25.571 Pain in right ankle and joints of right foot; Z79.899 Other long term (current) drug therapy; Z28.310 Unvaccinated for COVID-19
CPT/HCPCS: 73610; 99283; A9270-GY

== ENCOUNTER 2022-04-15 18:26 | Emergency (ER) | payer OTHER ==
--- NOTE | 2022-04-15 19:17 | ERPHSYRPT ---
- History of Present Illness Time Seen by Provider: 04/15/22 19:05 Source: patient Exam Limitations: no limitations Physician History: This is a 27-year-old white female patient who is approximately 9 to 10 weeks and this past week and noticed some lower abdominal cramping without vaginal bleeding. This subsided. Then today, approximately 3 to 4:00 PM, she h ad similar abdominal cramping in the lower abdomen but has now had some light vaginal bleeding. Patient has not had vaginal or pelvic ultrasound. She has not had quantitative hCG or blood work. Patient denies shortness of breath. Patient denies chest chest pain. Timing/Duration: today Activites at Onset: none Quality: cramping Onset Location: suprapubic, pelvic pain (Cramping) Pain Radiation: none Severity of Pain-Max: mild (To moderate) Severity of Pain-Current: mild (To moderate) Prior abdominal problems: none Modifying Factors: Improves With: nothing Associated Symptoms: abdominal pain (Lower abdominal suprapubic cramping), , vaginal discharge (Bleeding) Allergies/Adverse Reactions: Penicillins Allergy (Mild, Verified 04/15/22 19:11) Rash sulfamethoxazole [From Bactrim] Allergy (Mild, Verified 04/15/22 19:11) Headache trimethoprim [From Bactrim] Allergy (Mild, Verified 04/15/22 19:11) Headache codeine Allergy (Verified 04/15/22 19:11) Home Medications: Sertraline HCl 50 mg [Zoloft 50 mg Tablet] 50 mg PO DAILY 02/12/22 [History] Hx Tetanus, Diphtheria Vaccination/Date Given: No Hx Influenza Vaccination/Date Given: Yes Hx Pneumococcal Vaccination/Date Given: No Travel Risk - International Travel Have you traveled outside of the country in past 3 weeks: No - Coronavirus Screening Are you exhibiting any of the following symptoms?: No Close contact with a COVID-19 positive Pt in past 14-21 Days: No - Vaccine Status Have you recieved a Covid-19 vaccination: No - Review of Systems Constitutional: No Symptoms Eyes: No Symptoms Ears, Nose, & Throat: No Symptoms Respiratory: No Symptoms Cardiac: No Symptoms Abdominal/Gastrointestinal: Abdominal Pain (Suprapubic cramping) Genitourinary Symptoms: Vaginal Bleeding Musculoskeletal: No Symptoms Skin: No Symptoms Neurological: No Symptoms Psychological: No Symptoms Endocrine: No Symptoms Hematologic/Lymphatic: No Symptoms Immunological/Allergic: No Symptoms All Other Systems: Reviewed and Negative - Past Medical History Pertinent Past Medical History: Yes Neurological History: Seizures ENT History: No Pertinent History Cardiac History: No Pertinent History Respiratory History: Asthma Endocrine Medical History: No Pertinent History Musculoskeletal History: No Pertinent History GI Medical History: Gallbladder Disease History: No Pertinent History Psycho-Social History: No Pertinent History Female Reproductive Disorders: No Pertinent History Other Medical History: mono, febrile seizures 7 years old - Past Surgical History Past Surgical History: Yes Neuro Surgical History: No Pertinent History Cardiac: No Pertinent History Respiratory: No Pertinent History Gastrointestinal: Cholecystectomy Genitourinary: No Pertinent History Musculoskeletal: No Pertinent History Female Surgical History: No Pertinent History - Social History Smoking Status: Never smoker Exposure to second hand smoke: No Drug Use: none Patient Lives Alone: No - Nursing Vital Signs Nursing Vital Signs: Initial Vital Signs Temperature 97.3 F 04/15/22 19:12 Pulse Rate 70 04/15/22 19:12 Respiratory Rate 18 04/15/22 19:12 Blood Pressure 106/65 04/15/22 19:12 O2 Sat by Pulse Oximetry 100 04/15/22 19:12 Pain Scale Pain Intensity 3 - Physical Exam General Appearance: no apparent distress, alert, anxiety Eye Exam: PERRL/EOMI, eyes nml inspection Ears, Nose, Throat Exam: normal ENT inspection, moist mucous membranes Neck Exam: normal inspection, non-tender, supple, full range of motion Respiratory Exam: normal breath sounds, lungs clear, airway intact, No chest te nderness, No respiratory distress Cardiovascular Exam: regular rate/rhythm, normal heart sounds, normal peripheral pulses Gastrointestinal/Abdomen Exam: soft, normal bowel sounds, tenderness (Suprapubic region) Pelvic Exam: not done Rectal Exam: not done Back Exam: normal inspection, normal range of motion, No CVA tenderness Extremity Exam: normal inspection, normal range of motion, pelvis stable Neurologic Exam: alert, oriented x 3, cooperative, funeral assistant II-XII nml as tested, normal mood/affect, nml cerebellar function, nml station & gait, sensation nml Skin Exam: normal color, warm, dry Lymphatic Exam: No adenopathy SpO2 Interpretation: normal O2 Delivery: Room Air - Course Nursing assessment & vital signs reviewed: Yes Ordered Tests: Active Orders 24 hr Category Date Time Status OB LIMITED [US] Stat Exams 04/15/22 19:18 Ordered CBC W DIFF Stat Lab 04/15/22 19:30 Completed CMP Stat Lab 04/15/22 19:30 Received CULTURE,URINE Stat Lab 04/15/22 19:21 Received HCG, Quantitative (Inhouse) Stat Lab 04/15/22 19:30 Received UA W/RFX CULTURE Stat Lab 04/15/22 19:21 Completed Lab/Rad Data: Laboratory Result Diagrams 04/15/22 19:30 Laboratory Results 04/15/22 04/15/22 Range/Units 19:30 19:21 WBC 8.6 (4.0-10.5) x10^3/uL RBC 3.72 L (4.1-5.4) x10^6/uL Hgb 11.4 L (12.0-16.0) g/dL Hct 33.7 L (35-47) % MCV 90.6 (78-100) fL MCH 30.6 (26-32) pg MCHC 33.8 (32-36) g/dL RDW 13.2 (11.5-14.0) % Plt Count 223 (150-450) x10^3/uL MPV 10.0 (7.5-11.0) fL Gran % 64.9 (36.0-66.0) % Immature Gran % (Auto) 0.2 (0.00-0.4) % Nucleat RBC Rel Count 0.0 (0.00-0.1) % Eos # (Auto) 0.26 (0-0.5) x10^3/uL Immature Gran # (Auto) 0.02 (0.00-0.03) x10^3u/L Absolute Lymphs (auto) 1.89 (1.0-4.6) x10^3/uL Absolute Monos (auto) 0.85 (0.0-1.3) x10^3/uL Absolute Nucleated RBC 0.00 (0.00-0.01) x10^3u/L Lymphocytes % 21.9 L (24.0-44.0) % Monocytes % 9.8 (0.0-12.0) % Eosinophils % 3.0 (0.00-5.0) % Basophils % 0.2 (0.0-0.4) % Absolute Granulocytes 5.60 (1.4-6.9) x10^3/uL Basophils # 0.02 (0-0.4) x10^3/uL Urinalys Dipstick Clnc MAIN LAB Urine Color YELLOW (YELLOW) Urine Appearance SLIGHTLY CLOUDY (CLEAR) Urine pH 6.0 (5-6) Ur Specific [place] 1.015 (1.005-1.025) POC Urine Protein Conf NEGATIVE (Negative) Urine Ketones NEGATIVE (NEGATIVE) Urine Nitrite NEGATIVE (NEGATIVE) Urine Bilirubin NEGATIVE (NEGATIVE) Urine Urobilinogen 1 (0-1) mg/dL Urine Leukocytes SMALL (NEGATIVE) Urine WBC (Auto) 3-5 (0-5) /HPF Urine RBC (Auto) 0-2 (0-2) /HPF U Epithel Cells (Auto) RARE (FEW) /HPF Urine Bacteria (Auto) RARE (NEGATIVE) /HPF Urine RBC MODERATE (0-5) [place] Urine Mucus (Auto) SLIGHT (NEGATIVE) /HPF Ur Culture Indicated? YES Urine Glucose NEGATIVE (NEGATIVE) mg/dL - Progress Progress: improved, re-examined Air Movement: good Progress Note: 04/15/22 20:35 OB ultrasound less than 14 weeks shows a single intrauterine viable fetus with a heart rate 144 bpm. The ultrasound determines the age at 13 weeks and 3 days. The adnexa are clear Blood Culture(s) Obtained: No Antibiotics given: Yes Counseled pt/family regarding: lab results, diagnosis, need for follow-up, rad results - Departure Departure Disposition: Home Clinical Impression: UTI (urinary tract infection), Vaginal bleeding during Condition: Stable Critical Care Time: No Referrals: PAL CALDERON NP [Primary Care Provider] - Follow up/PCP as directed Additional Instructions: Drink plenty fluids. Take your medication as prescribed. Follow-up with your hydrotherapist tomorrow for further evaluation management. Prescriptions: Cephalexin Mh 500 mg [Keflex 500 mg] 500 mg PO TID #21 cap
[2022-04-15 19:36] LABS: Basophil (Absolute #) 0.02 x10^3/uL (0-0.4); Eosinophil (Absolute #) 0.26 x10^3/uL (0-0.5); Hematocrit 33.7 % (35-47); Hemoglobin 11.4 g/dL (12.0-16.0); Lymphocyte (Absolute #) 1.89 x10^3/uL (1.0-4.6); Lymphocytes % 21.9 % (24.0-44.0); Mean Cell Volume 90.6 fL (78-100); Mean Corpuscular Hemoglobin 30.6 pg (26-32); Mean Corpuscular Hgb Concent. 33.8 g/dL (32-36); Monocyte (Absolute #) 0.85 x10^3/uL (0.0-1.3); Monocytes % 9.8 % (0.0-12.0); Neutrophil % 64.9 % (36.0-66.0); Platelet Count 223 x10^3/uL (150-450); Red Blood Count 3.72 x10^6/uL (4.1-5.4); Red Cell Distribution Width 13.2 % (11.5-14.0); White Blood Count 8.6 x10^3/uL (4.0-10.5)
[2022-04-15 19:41] LABS: Bacteria RARE /HPF (NEGATIVE); Epithelial Cells RARE /HPF (FEW); Mucus SLIGHT /HPF (NEGATIVE); RBC 0-2 /HPF (0-2)
[2022-04-15 19:44] LABS: Appearance SLIGHTLY CLOUDY (CLEAR); Bilirubin NEGATIVE (NEGATIVE); Glucose NEGATIVE (NEGATIVE); Ketones NEGATIVE (NEGATIVE); Protein,Urine Dip NEGATIVE (Negative); RBC MODERATE Ery/ul (0-5); Specific Gravity 1.015 (1.005-1.025); Urobilinogen 1 mg/dL (0-1)
[2022-04-15 19:45] LABS: Dipstick done @ ? MAIN LAB; Nitrite NEGATIVE (NEGATIVE); Urine Cultured Indicated? YES
[2022-04-15 20:30] LABS: ALBUMIN 3.9 g/dL (3.5-5.0); ALKALINE PHOSPHATASE 72 U/L (38-126); ANION GAP 13.1 MEQ/L (5-15); BLOOD UREA NITROGEN 7 mg/dL (7-17); CHLORIDE 104 mmol/L (98-107); Calcium 8.9 mg/dL (8.4-10.2); Carbon Dioxide 22 mmol/L (22-30); Creatinine 1 0.46 mg/dL (0.52-1.04); EST GLOMERULAR FILTRATION RATE > 60.0 ML/MIN; Glucose 86 mg/dL (74-106); Potassium 3.7 mmol/L (3.5-5.1); SGOT/AST 12 U/L (14-36); SGPT/ALT 11 U/L (0-35); SODIUM 136 mmol/L (137-145); Total Protein 7.1 g/dL (6.3-8.2)
[2022-04-15] MEDS ORDERED: KEFLEX 500 MG ONE (20:41)
[2022-04-15] MEDS: KEFLEX 500 MG PO ONE (20:42)
[2022-04-15 20:55] VITALS: BP 102/63; PULSE 64; O2SAT 99
[2022-04-15 20:55] LABS: HCG, Quantitative (Inhouse) 68250 mIU/ml
--- NOTE | 2022-04-16 08:59 | XRAY ---
Indication: Pain, bleeding, and cramping. Comparison: None. This patency. Limited transabdominal early OB ultrasound demonstrates single intrauterine with heart rate 144 BPM. Mean crown-rump length measures 7.28 cm corresponding to 13 weeks 3 days. Developing posterior placenta without retroplacental fluid. Cervix is closed. Right ovary unremarkable. Left ovary not visualized. No suspicious adnexal mass or free fluid. Impression: Single viable intrauterine measuring 13 weeks 3 days. Expected date confinement is October 18, 2022. Nothing acute. Comment: Preliminary report was given.
== END 2022-04-15 20:56 | disposition home or self-care (01) ==
LOC: ED 18:26
DX: O23.41 Unspecified infection of urinary tract in pregnancy, first trimester (principal); N39.0 Urinary tract infection, site not specified; O20.9 Hemorrhage in early pregnancy, unspecified; Z3A.13 13 weeks gestation of pregnancy; R10.2 Pelvic and perineal pain; Z79.899 Other long term (current) drug therapy; Z28.310 Unvaccinated for COVID-19
CPT/HCPCS: 36415; 76815; 80053; 81015; 84702; 85025; 87086; 99283; A9270-GY

== ENCOUNTER 2023-07-04 23:29 | Emergency (ER) | payer OTHER ==
--- NOTE | 2023-07-04 23:37 | ERPHSYRPT ---
- History of Present Illness Time Seen by Provider: 07/04/23 23:37 Historian: patient, family Exam Limitations: no limitations Physician History: Pt has concern that abd pain may be appendix SHe has had RLQ pain for 4 days without trauma. some N no V. No D. Tender RLQ on exam. PMHx notable for GB removal. Mother is present in ER and served as independent source to confirm Hx. Discussed risks/benefits of CT including radiation, US, IVF, Zofran, CBC, CMP, Lactate, Katharina, UA, Lipase, with pt and mother and they wish to proceed. These are ordered. Results discussed. Timing/Duration: day(s) Activities at Onset: none Quality: cramping, pressure, sharpness Abdominal Pain Onset Location: RLQ Pain Radiation: no radiation Severity of Pain-Max: moderate Severity of Pain-Current: moderate Modifying Factors: Improves With: movement Associated Symptoms: loss of appetite, nausea Previous symptoms: no prior history Allergies/Adverse Reactions: Penicillins Allergy (Mild, Verified 07/05/23 00:05) Rash sulfamethoxazole [From Bactrim] Allergy (Mild, Verified 07/05/23 00:05) Headache trimethoprim [From Bactrim] Allergy (Mild, Verified 07/05/23 00:05) Headache codeine Allergy (Verified 07/05/23 00:05) Home Medications: Sertraline HCl 50 mg [Zoloft 50 mg Tablet] 50 mg PO DAILY 02/12/22 [History] Medroxyprogesterone Acetate [Depo-Subq Provera 104] 104 mg SQ DIRECTIONS UNKNOWN 07/05/23 [History] Hx Tetanus, Diphtheria Vaccination/Date Given: No Hx Influenza Vaccination/Date Given: Yes Hx Pneumococcal Vaccination/Date Given: No Travel Risk - Vaccine Status Have you recieved a Covid-19 vaccination: No - Review of Systems Constitutional: No Fever, No Chills Eyes: No Symptoms Ears, Nose, & Throat: No Symptoms Respiratory: No Cough, No Dyspnea Cardiac: No Chest Pain, No Edema, No Syncope Abdominal/Gastrointestinal: Abdominal Pain, Nausea, No Vomiting, No Diarrhea Genitourinary Symptoms: No Dysuria, No Flank Pain, No Vaginal Bleeding, No Vaginal Discharge Musculoskeletal: No Back Pain, No Neck Pain Skin: No Symptoms, No Rash Neurological: No Dizziness, No Focal Weakness, No Sensory Changes Psychological: No Symptoms Endocrine: No Symptoms Hematologic/Lymphatic: No Symptoms Immunological/Allergic: No Symptoms All Other Systems: Reviewed and Negative - Past Medical History Pertinent Past Medical History: Yes Neurological History: Seizures ENT History: No Pertinent History Cardiac History: No Pertinent History Respiratory History: Asthma Endocrine Medical History: No Pertinent History Musculoskeletal History: No Pertinent History GI Medical History: Gallbladder Disease History: No Pertinent History Psycho-Social History: No Pertinent History Female Reproductive Disorders: No Pertinent History Other Medical History: mono, febrile seizures 7 years old - Past Surgical History Past Surgical History: Yes Neuro Surgical History: No Pertinent History Cardiac: No Pertinent History Respiratory: No Pertinent History Gastrointestinal: Cholecystectomy Genitourinary: No Pertinent History Musculoskeletal: No Pertinent History Female Surgical History: No Pertinent History - Social History Smoking Status: Never smoker Exposure to second hand smoke: No Drug Use: none Patient Lives Alone: No - Nursing Vital Signs Nursing Vital Signs: Initial Vital Signs Temperature 98.0 F 07/05/23 00:08 Pulse Rate 82 07/05/23 00:08 Respiratory Rate 18 07/05/23 00:08 Blood Pressure 115/64 07/05/23 00:08 O2 Sat by Pulse Oximetry 99 07/05/23 00:08 Pain Scale Pain Intensity 5 - Physical Exam General Appearance: no apparent distress, alert Eye Exam: PERRL/EOMI, eyes nml inspection Ears, Nose, Throat Exam: normal ENT inspection, pharynx normal, moist mucous membranes Neck Exam: normal inspection, non-tender, supple, full range of motion Respiratory Exam: normal breath sounds, lungs clear, No respiratory distress Cardiovascular Exam: regular rate/rhythm, normal heart sounds Gastrointestinal/Abdomen Exam: soft, tenderness, guarding, No mass Pelvic Exam: deferred Rectal Exam: deferred Back Exam: normal inspection, normal range of motion, No CVA tenderness, No vertebral tenderness Extremity Exam: normal inspection, normal range of motion, pelvis stable Neurologic Exam: alert, oriented x 3, cooperative, normal mood/affect, nml cerebellar function, sensation nml, No motor deficits Skin Exam: normal color, warm, dry SpO2 Interpretation: normal SpO2: 99 O2 Delivery: Room Air - Course Nursing assessment & vital signs reviewed: Yes - CT Exams Abdomen/Pelvis CT Interpretation: Tele-radiologist Report, No appendicitis, Other (right ovarian cyst) - Radiology Ultrasound Exam Pelvis Ultrasound: No Torsion/Nml Flow Ordered Tests: Active Orders 24 hr Category Date Time Status IV Insertion STAT Care 07/05/23 00:14 Active ABDOMEN AND PELVIS W/0 CONTRAS [CT] Stat Exams 07/05/23 00:11 Completed PELVIS TRANS VAGINAL [US] Stat Exams 07/05/23 00:12 Taken AMYLASE Stat Lab 07/05/23 00:38 Completed CBC W DIFF Stat Lab 07/05/23 00:38 Completed CMP Stat Lab 07/05/23 00:38 Completed HCG QUALITATIVE, SERUM Stat Lab 07/05/23 00:38 Completed LIPASE Stat Lab 07/05/23 00:38 Completed Lactic Acid Stat Lab 07/05/23 00:35 Completed UA W/RFX UR CULTURE Stat Lab 07/05/23 00:33 Completed Medication Summary Discontinued Medications Generic Name Dose Route Start Last Admin Trade Name Freq PRN Reason Stop Dose Admin Sodium Chloride 1,000 mls @ 999 mls/hr 07/05/23 00:14 07/05/23 01:09 Sodium Chloride 0.9% 1000 Ml IV 07/05/23 01:14 999 mls/hr .Q1H1M STA Administration Sodium Chloride Confirm 07/05/23 00:53 Sodium Chloride 0.9% 1000 Ml Administered 07/05/23 00:54 Dose 1,000 mls @ ud .ROUTE .STK-MED ONE Ondansetron HCl 4 mg 07/05/23 00:14 07/05/23 01:10 Ondansetron Hcl 4 Mg/2 Ml Vial IV 07/05/23 00:15 4 mg STAT ONE Administration Ondansetron HCl Confirm 07/05/23 00:53 Ondansetron Hcl 4 Mg/2 Ml Vial Administered 07/05/23 00:54 Dose 4 mg .ROUTE .STK-MED ONE Lab/Rad Data: Laboratory Result Diagrams 07/05/23 00:38 07/05/23 00:38 Laboratory Results 07/05/23 07/05/23 07/05/23 Range/Units 00:38 00:38 00:38 WBC 9.0 (4.0-10.5) x10^3/uL RBC 4.45 (4.1-5.4) x10^6/uL Hgb 13.1 (12.0-16.0) g/dL Hct 39.1 (35-47) % MCV 87.9 (78-100) fL MCH 29.4 (26-32) pg MCHC 33.5 (32-36) g/dL RDW 13.3 (11.5-14.0) % Plt Count 258 (150-450) x10^3/uL MPV 10.5 (7.5-11.0) fL Gran % 58.0 (36.0-66.0) % Immature Gran % (Auto) 0.3 (0.00-0.4) % Nucleat RBC Rel Count 0.0 (0.00-0.1) % Eos # (Auto) 0.23 (0-0.5) x10^3/uL Immature Gran # (Auto) 0.03 (0.00-0.03) x10^3u/L Absolute Lymphs (auto) 2.64 (1.0-4.6) x10^3/uL Absolute Monos (auto) 0.85 (0.0-1.3) x10^3/uL Absolute Nucleated RBC 0.00 (0.00-0.01) x10^3u/L Lymphocytes % 29.3 (24.0-44.0) % Monocytes % 9.4 (0.0-12.0) % Eosinophils % 2.6 (0.00-5.0) % Basophils % 0.4 (0.0-0.4) % Absolute Granulocytes 5.22 (1.4-6.9) x10^3/uL Basophils # 0.04 (0-0.4) x10^3/uL Sodium 141 (137-145) mmol/L Potassium 3.7 (3.5-5.1) mmol/L Chloride 105 (98-107) mmol/L Carbon Dioxide 26 (22-30) mmol/L Anion Gap 13.9 (5-15) MEQ/L BUN 16 (7-17) mg/dL Creatinine 0.75 (0.52-1.04) mg/dL Estimated GFR 112.5 ML/MIN Glucose 103 (74-106) mg/dL Lactic Acid (0.4-2.0) Calcium 9.5 (8.4-10.2) mg/dL Total Bilirubin 0.40 (0.2-1.3) mg/dL AST 16 (14-36) U/L ALT 14 (0-35) U/L Alkaline Phosphatase 74 (38-126) U/L Serum Total Protein 8.0 (6.3-8.2) g/dL Albumin 4.5 (3.5-5.0) g/dL Amylase 62 (30-110) U/L Lipase 85 (23-300) U/L Serum HCG, Qual NEGATIVE (NEGATIVE) Urine Color (Yellow) Urine Appearance (Clear) Urine pH (4.6-8.0) Ur Specific [place] (1.005-1.030) Urine Protein (Negative) Urine Glucose (UA) (Negative) mg/dL Urine Ketones (Negative) Urine Blood (Negative) Urine Nitrite (Negative) Urine Bilirubin (Negative) Urine Urobilinogen (0.2) mg/dL Ur Leukocyte Esterase (Negative) U Hyaline Cast (Auto) (0-2) /LPF Urine Microscopic RBC (0-5) /HPF Urine Microscopic WBC (0-5) /HPF Ur Epithelial Cells (None Seen) /HPF Urine Bacteria (None Seen) /HPF Urine Culture Reflexed (NO) 07/05/23 07/05/23 Range/Units 00:35 00:33 WBC (4.0-10.5) x10^3/uL RBC (4.1-5.4) x10^6/uL Hgb (12.0-16.0) g/dL Hct (35-47) % MCV (78-100) fL MCH (26-32) pg MCHC (32-36) g/dL RDW (11.5-14.0) % Plt Count (150-450) x10^3/uL MPV (7.5-11.0) fL Gran % (36.0-66.0) % Immature Gran % (Auto) (0.00-0.4) % Nucleat RBC Rel Count (0.00-0.1) % Eos # (Auto) (0-0.5) x10^3/uL Immature Gran # (Auto) (0.00-0.03) x10^3u/L Absolute Lymphs (auto) (1.0-4.6) x10^3/uL Absolute Monos (auto) (0.0-1.3) x10^3/uL Absolute Nucleated RBC (0.00-0.01) x10^3u/L Lymphocytes % (24.0-44.0) % Monocytes % (0.0-12.0) % Eosinophils % (0.00-5.0) % Basophils % (0.0-0.4) % Absolute Granulocytes (1.4-6.9) x10^3/uL Basophils # (0-0.4) x10^3/uL Sodium (137-145) mmol/L Potassium (3.5-5.1) mmol/L Chloride (98-107) mmol/L Carbon Dioxide (22-30) mmol/L Anion Gap (5-15) MEQ/L BUN (7-17) mg/dL Creatinine (0.52-1.04) mg/dL Estimated GFR ML/MIN Glucose (74-106) mg/dL Lactic Acid 0.8 (0.4-2.0) Calcium (8.4-10.2) mg/dL Total Bilirubin (0.2-1.3) mg/dL AST (14-36) U/L ALT (0-35) U/L Alkaline Phosphatase (38-126) U/L Serum Total Protein (6.3-8.2) g/dL Albumin (3.5-5.0) g/dL Amylase (30-110) U/L Lipase (23-300) U/L Serum HCG, Qual (NEGATIVE) Urine Color Yellow (Yellow) Urine Appearance Clear (Clear) Urine pH 7.0 (4.6-8.0) Ur Specific [place] 1.020 (1.005-1.030) Urine Protein Negative (Negative) Urine Glucose (UA) Negative (Negative) mg/dL Urine Ketones Negative (Negative) Urine Blood Negative (Negative) Urine Nitrite Negative (Negative) Urine Bilirubin Negative (Negative) Urine Urobilinogen 1.0 A (0.2) mg/dL Ur Leukocyte Esterase Trace A (Negative) U Hyaline Cast (Auto) NONE SEEN (0-2) /LPF Urine Microscopic RBC 0-2 (0-5) /HPF Urine Microscopic WBC 3-5 (0-5) /HPF Ur Epithelial Cells None Seen (None Seen) /HPF Urine Bacteria None Seen (None Seen) /HPF Urine Culture Reflexed NO (NO) - Progress Progress: improved, re-examined Progress Note: 07/05/23 02:27 pt and mom are advised that although we found an ovarian cyst, there still could be other causes undetected developing, and that f/u with her DrCindy is advised. They understand and are comfortable to choose outpt f/u rather than further testing or obs in house and have the capacity to make this choice. 07/05/23 02:29 the pt also chooses OTC meds after discussion or risks/benefits, rather than prescription pain meds at this time. 07/05/23 02:30 Counseled pt/family regarding: lab results, diagnosis, need for follow-up, rad results Medical Desision Making - Independent Historian Additional History obtained from: Mother - Discussion of managment Reviewed:: Test results, Need for additional workup Agreed on:: Treatment plan, need for follow-up - Diagnostic Testing Diagnostic test were ordered, analyzed, and reviewed by me: Yes Radiological Interpretation: Reviewed by me, Teleradiologist Report - Risk of complications The pt has a mod risk of morbidity or mortality based on: Need for prescription drug management The pt has a high risk of morbidity or mortality based on: Decision regarding hospitilization or escalation of hosp level of care - Departure Departure Disposition: Home Clinical Impression: Right ovarian cyst, Abdominal pain Condition: Good Critical Care Time: No Referrals: PAL CALDERON NP [Primary Care Provider] - Follow up/PCP as directed Instructions: Abdominal Pain, Adult ED, Ovarian Cyst (DC) Additional Instructions: ALthough we did find an ovarian cyst which is a likely source for your symptoms, there still could be undetected conditions developing, so followup of the cyst as well as for any additional workup is a good idea. The urine should also be rechecked at followup in case it progresses to an infection although not yet at that level.
[2023-07-05 00:09] VITALS: TEMP 98
[2023-07-05] MEDS ORDERED: Zofran 4 MG/2 ML VIAL IV ONE (00:14)
[2023-07-05] MEDS ORDERED: Sodium Chloride 0.9% 1000 ML 1,000 ML IV STA (00:14)
[2023-07-05 00:41] LABS: Absolute Neutrophil Ct (ANC) 5.22 x10^3/uL (1.4-6.9); BASOPHIL % 0.4 % (0.0-0.4); Basophil (Absolute #) 0.04 x10^3/uL (0-0.4); Eosinophil % 2.6 % (0.00-5.0); Eosinophil (Absolute #) 0.23 x10^3/uL (0-0.5); Hematocrit 39.1 % (35-47); Hemoglobin 13.1 g/dL (12.0-16.0); IMMATURE GRAN # 0.03 x10^3u/L (0.00-0.03); IMMATURE GRAN % 0.3 % (0.00-0.4); Lymphocyte (Absolute #) 2.64 x10^3/uL (1.0-4.6); Lymphocytes % 29.3 % (24.0-44.0); Mean Cell Volume 87.9 fL (78-100); Mean Corpuscular Hemoglobin 29.4 pg (26-32); Mean Corpuscular Hgb Concent. 33.5 g/dL (32-36); Mean Platelet Volume 10.5 fL (7.5-11.0); Monocyte (Absolute #) 0.85 x10^3/uL (0.0-1.3); Monocytes % 9.4 % (0.0-12.0); Platelet Count 258 x10^3/uL (150-450); Red Blood Count 4.45 x10^6/uL (4.1-5.4); Red Cell Distribution Width 13.3 % (11.5-14.0)
[2023-07-05 00:49] LABS: Appearance Clear (Clear); Bacteria None Seen /HPF (None Seen); Bilirubin Negative (Negative); Blood Negative (Negative); Epithelial Cells None Seen /HPF (None Seen); Glucose, Urine Negative (Negative); Hyaline Casts NONE SEEN /LPF (0-2); Ketones Negative (Negative); Leukocyte Esterase Trace (Negative); Nitrite Negative (Negative); Protein,Urine Dip Negative (Negative); RBC 0-2 /HPF (0-5)
[2023-07-05] MEDS ORDERED: Sodium Chloride 0.9% 1000 ML 1,000 ML ONE (00:53)
[2023-07-05] MEDS ORDERED: Zofran 4 MG/2 ML VIAL ONE (00:53)
[2023-07-05 00:54] LABS: ALBUMIN 4.5 g/dL (3.5-5.0); ANION GAP 13.9 MEQ/L (5-15); BILIRUBIN,TOTAL 0.4 mg/dL (0.2-1.3); Calcium 9.5 mg/dL (8.4-10.2); Creatinine 1 0.75 mg/dL (0.52-1.04); EST GLOMERULAR FILTRATION RATE 112.5 ML/MIN; Potassium 3.7 mmol/L (3.5-5.1)
[2023-07-05 00:59] LABS: HCG SERUM TEST NEGATIVE (NEGATIVE)
[2023-07-05 01:00] LABS: ADD URINE CULTURE? NO (NO)
--- NOTE | 2023-07-05 02:04 | XRAY ---
CLINICAL HISTORY:RLQ ABd tenderness and pain COMPARISON:None. TECHNIQUE:CT of the abdomen and pelvis was performed in axial plane with sagittal and coronal reconstructed images without intravenous contrast administration. FINDINGS: The liver is normal in size, morphology and appears unremarkable with no intrahepatic or extrahepatic bile duct dilation. Gall bladder surgically removed. Unremarkable appearing pancreas. No pancreatic mass or ductal dilatation is seen. Unremarkable appearing spleen. The adrenal glands are normal. The kidneys appear unremarkable with no cysts masses or hydronephrosis. The ureters are normal with no stones. Unremarkable abdominal aorta without specific evidence of aneurysm or dissection. IVC is normal. The stomach appears unremarkable. Unremarkable appearing duodenum. Small Bowel and colon are non-distended with no abnormality. The appendix is retro cecal. No evidnce of acute appendicits. No free air and no ascites. No free intraperitoneal air is seen. Bladder is unremarkable with no stones. Right ovary shows a 2.9 x 3.2 x 2.7 cm hypodense cyst. Uterus is unremarkable. Scanned lung bases are unremarkable. IMPRESSION: 1. Right adnexal cyst for dedicated transvaginal US correlation and follow up. 2. Normal CT appearance of the appendix. 3. No acute abnormality noted. Electronically Signed by: Reva Murcia MD. (07/05/2023 01:59:22 EST)
[2023-07-05 02:15] VITALS: BP 105/55; PULSE 72; RESP 18
[2023-07-05 02:27] VITALS: O2SAT 99
--- NOTE | 2023-07-05 08:40 | XRAY ---
Indication: Right lower quadrant adnexal pain and tenderness. Two-dimensional transvaginal pelvic sonogram performed. Comparison: None Uterus anteverted measuring 8.1 x 3.4 x 4.7 cm. No focal solid/cystic uterine mass. Endometrial stripe measures 2.9 mm. No endometrial cavity mass or fluid collection. Right ovary measures 2.7 x 2.6 x 3.1 cm and left measures 2.7 x 1.7 x 2.7 cm. Normal perfusion and follicular cysts bilaterally. No suspicious adnexal mass or free fluid. Impression: Negative transvaginal pelvic sonogram. Comment: Preliminary report was given.
== END 2023-07-05 02:50 | disposition home or self-care (01) ==
LOC: ED 23:29
DX: N83.201 Unspecified ovarian cyst, right side (principal); R10.31 Right lower quadrant pain; R11.0 Nausea; Z79.899 Other long term (current) drug therapy; Z28.310 Unvaccinated for COVID-19
CPT/HCPCS: 36000; 36415; 74176; 76830; 80053; 81001; 82150; 83605; 83690; 84703; 85025; 96374; 99284; J2405

== ENCOUNTER 2023-07-29 16:31 | Emergency (ER) | payer OTHER ==
--- NOTE | 2023-07-29 16:41 | ERPHSYRPT ---
- History of Present Illness Time Seen by Provider: 07/29/23 16:41 Source: patient Exam Limitations: no limitations Physician History: This is a 28-year-old white female patient of nurse practitioner Cynthia who presents with chest congestion and cough as well as low-grade fever since yesterday. Patient was exposed to viral illness with the child and her family having diagnosed with flu. Patient denies nausea vomiting diarrhea. She has no chest pain. She has no significant shortness of breath. She has no abdominal pain. Cough Quality/Degree: mild Possible Cause: no prior episodes Modifying Factors: Improves With: coughing Associated Symptoms: fever, cough, nasal congestion, No chest pain/soreness (At home), No shortness of breath Allergies/Adverse Reactions: Penicillins Allergy (Mild, Verified 07/05/23 00:05) Rash sulfamethoxazole [From Bactrim] Allergy (Mild, Verified 07/05/23 00:05) Headache trimethoprim [From Bactrim] Allergy (Mild, Verified 07/05/23 00:05) Headache codeine Allergy (Verified 07/05/23 00:05) Home Medications: Sertraline HCl 50 mg [Zoloft 50 mg Tablet] 50 mg PO DAILY 02/12/22 [History] Medroxyprogesterone Acetate [Depo-Subq Provera 104] 104 mg SQ DIRECTIONS UNKNOWN 07/05/23 [History] Citalopram Hydrobromide [Citalopram HBr] 30 mg PO DAILY 07/29/23 [History] Phentermine HCl [Adipex-P] 37.5 mg PO DAILY 07/29/23 [History] Hx Tetanus, Diphtheria Vaccination/Date Given: No Hx Influenza Vaccination/Date Given: Yes Hx Pneumococcal Vaccination/Date Given: No Travel Risk - International Travel Have you traveled outside of the country in past 3 weeks: No - Coronavirus Screening Are you exhibiting any of the following symptoms?: Yes Symptoms: Cough: New Onset Close contact with a COVID-19 positive Pt in past 14-21 Days: No - Vaccine Status Have you recieved a Covid-19 vaccination: No - Review of Systems Constitutional: No Symptoms Eyes: No Symptoms Ears, Nose, & Throat: Nose Congestion Respiratory: Cough Cardiac: No Symptoms Abdominal/Gastrointestinal: No Symptoms Genitourinary Symptoms: No Symptoms Musculoskeletal: No Symptoms Skin: No Symptoms Neurological: No Symptoms Psychological: No Symptoms Endocrine: No Symptoms Hematologic/Lymphatic: No Symptoms Immunological/Allergic: No Symptoms All Other Systems: Reviewed and Negative - Past Medical History Pertinent Past Medical History: Yes Neurological History: Seizures ENT History: No Pertinent History Cardiac History: No Pertinent History Respiratory History: Asthma Endocrine Medical History: No Pertinent History Musculoskeletal History: No Pertinent History GI Medical History: Gallbladder Disease History: No Pertinent History Psycho-Social History: No Pertinent History Female Reproductive Disorders: No Pertinent History Other Medical History: mono, febrile seizures 7 years old - Past Surgical History Past Surgical History: Yes Neuro Surgical History: No Pertinent History Cardiac: No Pertinent History Respiratory: No Pertinent History Gastrointestinal: Cholecystectomy Genitourinary: No Pertinent History Musculoskeletal: No Pertinent History Female Surgical History: No Pertinent History - Social History Smoking Status: Never smoker Exposure to second hand smoke: No Drug Use: none Patient Lives Alone: No - Nursing Vital Signs Nursing Vital Signs: Initial Vital Signs Temperature 98.8 F 07/29/23 16:43 Pulse Rate 107 H 07/29/23 16:43 Respiratory Rate 20 07/29/23 16:43 Blood Pressure 131/68 07/29/23 16:43 O2 Sat by Pulse Oximetry 99 07/29/23 16:43 Pain Scale Pain Intensity 0 - Physical Exam General Appearance: no apparent distress, alert Eye Exam: PERRL/EOMI, eyes nml inspection Ears, Nose, Throat Exam: normal ENT inspection, moist mucous membranes Neck Exam: normal inspection, non-tender, supple, full range of motion Respiratory Exam: normal breath sounds, lungs clear, airway intact, No chest tenderness, No respiratory distress Cardiovascular Exam: regular rate/rhythm, normal heart sounds, normal peripheral pulses Gastrointestinal/Abdomen Exam: soft, normal bowel sounds, No tenderness Pelvic Exam: not done Rectal Exam: not done Back Exam: normal inspection, normal range of motion, No CVA tenderness Extremity Exam: normal inspection, normal range of motion, pelvis stable Neurologic Exam: alert, oriented x 3, cooperative, supervisor boarding II-XII nml as tested, normal mood/affect, nml cerebellar function, nml station & gait, sensation nml Skin Exam: normal color, warm, dry Lymphatic Exam: No adenopathy SpO2 Interpretation: normal O2 Delivery: Room Air - Course Nursing assessment & vital signs reviewed: Yes Ordered Tests: Active Orders 24 hr Category Date Time Status CHEST 1 VIEW (PORTABLE) Stat Exams 07/29/23 18:30 Taken Lab/Rad Data: Laboratory Results 07/29/23 Range/Units 17:05 Influenza Type A Ag POSITIVE (NEGATIVE) Influenza Type B Ag NEGATIVE (NEGATIVE) RSV (PCR) NEGATIVE (NEGATIVE) SARS-CoV-2 (PCR) NEGATIVE (NEGATIVE) Group A Strep Antibody NOT DETECTED (NEGATIVE) - Progress Progress: unchanged Air Movement: good Progress Note: 07/29/23 19:31 This patient's medical issue is 1 of low complexity. Level complex in the workup performed is based on review of the patient's past medical history, review of the patient's medication list, reviewed patient's drug allergy list, history present illness and physical findings on examination. This patient's medical workup includes chest x-ray and viral swabs. I reviewed and interpreted the results of this patient's laboratory data. Patient is positive for influenza A infection. Chest x-ray was interpreted by me. There is no evidence of any acute cardiopulmonary process. Blood Culture(s) Obtained: No Antibiotics given: No Counseled pt/family regarding: diagnosis, need for follow-up, rad results Medical Desision Making - Diagnostic Testing Diagnostic test were ordered, analyzed, and reviewed by me: Yes Radiological Interpretation: Interpreted by me - Risk of complications The pt has a mod risk of morbidity or mortality based on: Need for prescription drug management - Departure Departure Disposition: Home Clinical Impression: Influenza A H1N1 infection Condition: Stable Critical Care Time: No Referrals: PAL CALDERON NP [Primary Care Provider] - Follow up/PCP as directed Additional Instructions: Drink plenty of fluids. Take your medication as prescribed. Follow-up with your primary care provider tomorrow, 07/30/2023, for further evaluation management. Prescriptions: Prednisone 10 mg [Deltasone 10 mg] 10 mg PO TID #12 tablet Oseltamivir 75 mg [Tamiflu 75MG Capsule] 75 mg PO BID #10 cap
[2023-07-29 17:36] LABS: Group A Strep NOT DETECTED (NEGATIVE)
[2023-07-29 17:47] LABS: INFLUENZA B NEGATIVE (NEGATIVE); RESPIRATORY SYNCTIAL VIRUS NEGATIVE (NEGATIVE); SARS-CoV-2 Xpert Express NEGATIVE (NEGATIVE)
[2023-07-29 17:54] LABS: INFLUENZA A POSITIVE (NEGATIVE)
[2023-07-29 18:30] VITALS: TEMP 97.2
[2023-07-29 19:22] VITALS: BP 122/72; PULSE 90; RESP 16; O2SAT 95
[2023-07-29] MEDS ORDERED: Tamiflu 75MG Capsule PO ONE ×2 (19:47→19:49)
--- NOTE | 2023-07-30 08:49 | XRAY ---
Indication: Cough. Comparison: April 28, 2014 Portable chest demonstrates normal heart, lungs, and bony thorax.
== END 2023-07-29 19:55 | disposition home or self-care (01) ==
LOC: ED 16:31
DX: J10.1 Influenza due to other identified influenza virus with other respiratory manifestations (principal); R05.1 Acute cough; R50.9 Fever, unspecified; Z79.52 Long term (current) use of systemic steroids; Z79.899 Other long term (current) drug therapy; Z28.310 Unvaccinated for COVID-19
CPT/HCPCS: 0241U; 71045; 87651; 99283; A9270-GY